=== PATIENT | male | born 1950 | race Caucasian/White ===

== ENCOUNTER 2018-03-05 22:26 | Emergency (ER) | payer OTHER ==
--- OUTSIDE RECORDS SUMMARY | 2018-03-05 22:28 | XMS REPORT ---
:1950 Author Organization eClinicalWorks Care Team Providers Name Role Phone Sukhwinder Wagner Provider Role Unavailable Allergies No Known Allergies Problems Problem Type Condition Code Onset Dates Condition Status Problem Chronic pain syndrome G89.4 Active Problem Former heavy tobacco smoker Z87.891 Active Problem Debility R53.81 Active Problem Hypothyroidism, unspecified type E03.9 Active Problem 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 Active Problem Iron deficiency anemia, unspecified D50.9 Active iron deficiency anemia type Problem Controlled type 2 diabetes mellitus E11.9 Active without complication, without long-term current use of insulin Problem 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 Problem At risk for falling Z91.81 Active Problem Rheumatoid arthritis involving M06.9 Active multiple sites, unspecified rheumatoid factor presence Problem Osteoarthritis of multiple joints, M15.9 Active unspecified osteoarthritis type Problem Chronic obstructive pulmonary J44.9 Active disease, unspecified COPD type Assessment Coronary artery disease involving I25.10 Active [place] coronary artery of [place] heart without angina pectoris Problem Hypertensive heart disease without I11.9 Active heart failure Problem History of fall Z91.81 Active Problem Coronary artery disease involving I25.10 Active [place] coronary artery of [place] heart without angina pectoris Problem Mixed hyperlipidemia E78.2 Active Problem GERD without esophagitis K21.9 Active Problem 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
--- OUTSIDE RECORDS SUMMARY | 2018-03-05 22:28 | XMS REPORT ---
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
--- OUTSIDE RECORDS SUMMARY | 2018-03-05 22:28 | XMS REPORT ---
:1950 Author Organization eClinicalWorks Care Team Providers Name Role Phone Bernard Sukhwinder Provider Role Unavailable Allergies, Adverse Reactions, Alerts Substance Reaction Event Type N.K.D.A. 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 [...] J44.9 Active disease, unspecified COPD type Assessment Abscess of right thigh L02.415 Active Problem Hypertensive heart disease without I11.9 Active heart failure Problem History of fall Z91.81 Active Problem Coronary artery disease involving I25.10 Active [place] coronary artery of [place] heart without angina pectoris Problem Mixed hyperlipidemia E78.2 Active Problem GERD without esophagitis K21.9 Active Problem 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 37671705366 800-160 MG September 13September Active 1 tablet Orally Twice a 2017 Metformin HCl ND 34646645666 500 MG Orally Active 1 tablet Twice a day with meals Synthroid [facility] 37713752441 25 MCG Orally August 02, Active 1 tablet Once a day 2017 on an empty stomach in the morning Morphine Sulfate [facility] 22284319339 15 MG Orally Active 1 tablet every 4 hrs as needed Sulfasalazine [facility] 78849294860 500 MG Orally Active 1 tablet every [address] [facility] 19734608700 1 MG Orally Active 1 tablet Once a day Metoprolol [facility] 95935645472 50 MG Orally Active 1 tablet Tartrate Twice a day with food Magnesium [facility] 57804013660 250 MG Orally Active 1 tablet Once a day with a meal Famotidine [facility] 58054761411 20 MG Orally Active 1 tablet Twice a day Clopidogrel [facility] 52394798378 75 MG Orally Active 1 tablet Bisulfate Once a day Aspir-[address] [facility] 04611055062 81 MG Orally Active 1 tablet Once a day Ferrous Sulfate [facility] 35931265325 325 (65 Fe) MG Active 1 tablet Orally Once a day Results No Known Results Summary Purpose eClinicalWorks Submission
--- OUTSIDE RECORDS SUMMARY | 2018-03-05 22:28 | XMS REPORT ---
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
--- OUTSIDE RECORDS SUMMARY | 2018-03-05 22:28 | XMS REPORT ---
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81 Active Problem Hypothyroidism, unspecified type E03.9 Active Problem 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 Active Assessment Hypothyroidism, unspecified type E03.9 Active Assessment Coronary artery disease involving I25.10 Active [place] coronary artery of [place] heart without angina pectoris Problem Iron deficiency anemia, unspecified D50.9 Active iron deficiency anemia type Assessment Mixed hyperlipidemia E78.2 Active Problem Controlled type 2 diabetes mellitus E11.9 Active without complication, without long-term current use of insulin Problem 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 Problem At risk for falling Z91.81 Active Problem Rheumatoid arthritis involving M06.9 Active multiple sites, unspecified rheumatoid factor presence Assessment Iron deficiency anemia, unspecified D50.9 Active iron deficiency anemia type Problem Osteoarthritis of multiple joints, M15.9 Active unspecified osteoarthritis type Assessment 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 Problem Chronic obstructive pulmonary J44.9 Active disease, unspecified COPD type Assessment Pain in right foot M79.671 Active Assessment Chronic pain syndrome G89.4 Active Assessment Pain of left foot M79.672 Active Problem Hypertensive heart disease without I11.9 Active heart failure Problem History of fall Z91.81 Active Problem Coronary artery disease involving I25.10 Active [place] coronary artery of [place] heart without angina pectoris Problem GERD without esophagitis K21.9 Active Medications Medication Code Code Instructions Start End Status Dosage System Date Date Synthroid [facility] 08252679910 25 MCG Orally August 02, Active 1 tablet Once a day 2017 on an empty stomach in the morning Oxycodone-Acetami [facility] 36267874790 10-325 MG Active 1 tablet nophen Orally every 6 as needed hrs Magnesium [facility] 48547354694 250 MG Orally Active 1 tablet Once a day with a meal Metformin HCl [facility] 74931614199 500 MG Orally Active 1 tablet Twice a day with meals Ferrous Sulfate [facility] 20259627585 325 (65 Fe) MG Active 1 tablet Orally Once a day Morphine Sulfate [facility] 72088114697 15 MG Orally Active 1 tablet every 4 hrs as needed Pravastatin [facility] 62029226658 40 MG Orally Active 1 tablet Sodium Once a day Famotidine [facility] 79968787849 20 MG Orally Active 1 tablet Once a day at bedtime Clopidogrel [facility] 98268706033 75 MG Orally Active 1 tablet Bisulfate Once a day -81 [facility] 44025055721 81 MG Orally Active 1 tablet Once a day Sulfasalazine [facility] 49334523598 500 MG Orally Active 1 tablet every 12 hrs Folic Acid [facility] 39949557735 1 MG Orally Active 1 tablet Once a day Allopurinol [facility] 73587398028 300 MG Orally Active 1 tablet Once a day Gabapentin [facility] 05561863324 600 MG Orally Active 1 tablet Once a day Levothyroxine [facility] 00129037672 25 MCG Orally Active 1 tablet Sodium Once a day on an empty stomach in the morning Bactrim DS [facility] 98388755674 800-160 MG September 13September Active 1 tablet Orally Twice a 2017 Metoprolol [facility] 70891826086 50 MG Orally Active 1 tablet Tartrate Twice a day with food Results No Known Results Summary Purpose eClinicalWorks Submission
--- OUTSIDE RECORDS SUMMARY | 2018-03-05 22:28 | XMS REPORT ---
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9 Active Problem 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 Active Assessment Coronary artery disease involving I25.10 Active [place] coronary artery of [place] heart without angina pectoris Assessment Mixed hyperlipidemia E78.2 Active Problem Iron deficiency anemia, unspecified D50.9 Active iron deficiency anemia type Assessment Rheumatoid arthritis involving M06.9 Active multiple sites, unspecified rheumatoid factor presence Problem Controlled type 2 diabetes mellitus E11.9 Active without complication, without long-term current use of insulin Problem 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 Problem At risk for falling Z91.81 Active Problem Rheumatoid arthritis involving M06.9 Active multiple sites, unspecified rheumatoid factor presence Assessment Pain of left foot M79.672 Active Problem Osteoarthritis of multiple joints, M15.9 Active unspecified osteoarthritis type Assessment Iron deficiency anemia, unspecified D50.9 Active iron deficiency anemia type Problem Chronic obstructive pulmonary J44.9 Active disease, unspecified COPD type Assessment Hypothyroidism, unspecified type E03.9 Active Assessment Pain in right foot M79.671 Active Assessment Chronic pain syndrome G89.4 Active Problem Hypertensive heart disease without I11.9 Active heart failure Problem History of fall Z91.81 Active Problem Coronary artery disease involving I25.10 Active [place] coronary artery of [place] heart without angina pectoris Problem GERD without esophagitis K21.9 Active Medications Medication Code Code Instructions Start End Status Dosage System Date Date [facility] 37842622990 81 MG Orally Active 1 tablet Once a day Famotidine [facility] 74008944825 20 MG Orally Active 1 tablet Once a day at bedtime Sulfasalazine [facility] 45619558465 500 MG Orally Active 1 tablet every 12 hrs Pravastatin [facility] 60749559002 40 MG Orally Active 1 tablet Sodium Once a day Folic Acid [facility] 16695901366 1 MG Orally Active 1 tablet Once a day Gabapentin [facility] 31867675642 600 MG Orally Active 1 tablet Once a day Metoprolol [facility] 43275907809 50 MG Orally Active 1 tablet Tartrate Twice a day with food Allopurinol [facility] 50196152343 300 MG Orally Active 1 tablet Once a day Levothyroxine [facility] 60278687708 25 MCG Orally Inactive 1 tablet Sodium Once a day on an empty stomach in the morning Levothyroxine [facility] 55562020405 50 MCG Orally July 16, Active 1 tablet Sodium Once a day 2018 on an empty stomach in the morning Metformin HCl [facility] 37939701485 500 MG Orally Active 1 tablet Twice a day with meals Magnesium [facility] 79769692808 250 MG Orally Active 1 tablet Once a day with a meal Oxycodone-Acetam [facility] 65324060455 10-325 MG Active 1 tablet inophen Orally every 6 as needed hrs Clopidogrel [facility] 19399727285 75 MG Orally Active 1 tablet Bisulfate Once a day Ferrous Sulfate [facility] 62647601182 325 (65 Fe) MG Active 1 tablet Orally Once a day Morphine Sulfate [facility] 45113832192 15 MG Orally Active 1 tablet every 4 hrs as needed Results No Known Results Summary Purpose eClinicalWorks Submission
--- OUTSIDE RECORDS SUMMARY | 2018-03-05 22:29 | XMS REPORT ---
[...] Assessment Coronary artery disease involving I25.10 Active [place] coronary artery of [place] heart without angina pectoris Problem Iron deficiency [...] Problem Coronary artery disease involving I25.10 Active [place] coronary artery of [place] heart without angina pectoris Problem GERD without esophagitis K21.9 Active Medications Medication Code Code Instructions Start End Status Dosage System Date Date Ferrous Sulfate [facility] 40094267083 325 (65 Fe) MG Active 1 tablet Orally Once a day Pravastatin [facility] 90645876036 40 MG Orally Active 1 tablet Sodium Once a day Morphine Sulfate [facility] 99033513614 15 MG Orally Active 1 tablet every 4 hrs as needed Synthroid [facility] 08813615317 25 MCG Orally August 02, Active 1 tablet Once a day 2017 on an empty stomach in the morning Metoprolol [facility] 43733841755 50 MG Orally Active 1 tablet Tartrate Twice a day with food -81 [facility] 55566833745 81 MG Orally Active 1 tablet Once a day Metformin HCl [facility] 55080579452 500 MG Orally Active 1 tablet Twice a day with meals Oxycodone-Acetami [facility] 20457139581 10-325 MG Active 1 tablet nophen Orally every 6 as needed hrs Folic Acid [facility] 34835627615 1 MG Orally Active 1 tablet Once a day Levothyroxine [facility] 65598362258 25 MCG Orally Active 1 tablet Sodium Once a day on an empty stomach in the morning Clopidogrel [facility] 65314119470 75 MG Orally Active 1 tablet Bisulfate Once a day Magnesium [facility] 17151932694 250 MG Orally Active 1 tablet Once a day with a meal Allopurinol [facility] 22353489329 300 MG Orally Active 1 tablet Once a day Famotidine [facility] 32189715975 20 MG Orally Active 1 tablet Once a day at bedtime Gabapentin [facility] 28925422394 600 MG Orally Active 1 tablet Once a day Sulfasalazine [facility] 48982482040 500 MG Orally Active 1 tablet every 12 hrs Results No Known Results Summary Purpose eClinicalWorks Submission
--- OUTSIDE RECORDS SUMMARY | 2018-03-05 22:29 | XMS REPORT ---
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
--- OUTSIDE RECORDS SUMMARY | 2018-03-05 22:29 | XMS REPORT ---
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
[2018-03-05] MEDS ORDERED: WATER FOR INJ,STERILE 10 ML ONE (23:18)
[2018-03-05] MEDS ORDERED: CEFTRIAXONE 1000 MG/VIAL ONE (23:18)
--- NOTE | 2018-03-05 23:30 | ER ---
Nurse's Notes [facility] Name: Cristian Echevarria Age: 67 yrs Sex: Male : 1950 Arrival Date: 03/05/2018 Time: 22:27 Bed 13 Private MD: Sukhwinder Wagner Diagnosis: Acute actinic otitis externa, left ear Presentation: 03/05 22:34 Presenting complaint: Patient states: left ear pain X1 week. Transition of care: ak1 patient was not received from another setting of care. Onset of symptoms is unknown. Risk Assessment: Do you want to hurt yourself or someone else? Patient reports no desire to harm self or others. Initial Sepsis Screen: Does the patient meet any 2 criteria? No. Patient's initial sepsis screen is negative. Does the patient have a suspected source of infection? No. Patient's initial sepsis screen is negative. Care prior to arrival: None. 22:34 Method Of Arrival: Ambulatory ak1 22:34 Acuity: JOEL 4 ak1 Triage Assessment: 22:35 General: Appears in no apparent distress. Behavior is calm, cooperative. Pain: ak1 Complains of pain in left ear. Historical: - Allergies: 22:35 No Known Allergies; ak1 - Immunization history:: Adult Immunizations unknown. - Social history:: Smoking status: Patient uses tobacco products, vape. - Ebola Screening: : No symptoms or risks identified at this time. Screenin:36 Abuse screen: Denies threats or abuse. Denies injuries from another. Nutritional ak1 screening: No deficits noted. Tuberculosis screening: No symptoms or risk factors identified. Fall Risk Ambulatory Aid- Crutches/Cane/Walker (15 pts). Assessment: 23:00 General: Appears in no apparent distress. uncomfortable, Behavior is calm, cooperative, jb4 appropriate for age. Pain: Complains of pain in left ear Pain does not radiate. Pain currently is 7 out of 10 on a pain scale. at worst was 10 out of 10 on a pain scale. Quality of pain is described as burning, stabbing. Neuro: Level of Consciousness is awake, alert, obeys commands, Oriented to person, place, time, situation. Cardiovascular: Patient's skin is warm and dry. Respiratory: Airway is patent Respiratory effort is even, unlabored, Respiratory pattern is regular, symmetrical. GI: No signs and/or symptoms were reported involving the gastrointestinal system. : No signs and/or symptoms were reported regarding the genitourinary system. EENT: Redness noted to the left ear.. Derm: Skin is intact, Skin is pink, warm \T\ dry. Musculoskeletal: Circulation, motion, and sensation intact. 23:24 Reassessment: Patient appears in no apparent distress at this time. Patient and/or jb4 family updated on plan of care and expected duration. Pain level reassessed. Patient is alert, oriented x 3, equal unlabored respirations, skin warm/dry/pink. Vital Signs: 22:35 BP 146 / 63; Pulse 88; Resp 18; Temp 98.5(O); Pulse Ox 97% on R/A; Weight 92.53 kg (R); ak1 Height 6 ft. 0 in. (182.88 cm) (R); Pain 8/10; 23:24 BP 129 / 76; Pulse 84; Resp 16; Pulse Ox 97% on R/A; jb4 22:35 Body Mass Index 27.67 (92.53 kg, 182.88 cm) ak1 ED Course: 22:27 Patient arrived in ED. am2 22:27 Sukhwinder Wagner DO is Private Physician. am2 22:32 [facility]. jmm 22:32 Chico Rene MD is Attending Physician. [facility] 22:34 Triage completed. ak1 22:35 Arm band placed on Patient placed in an exam room, on a stretcher, on pulse oximetry. ak1 22:36 Patient has correct armband on for positive identification. Bed in low position. Call ak1 light in reach. Side rails up X 1. Adult w/ patient. Pulse ox on. NIBP on. 23:00 Colby Strauss, ANA is Primary Nurse. jb4 23:29 Eufemia Franco MD is Referral Physician. [facility] 23:42 No provider procedures requiring assistance completed. Patient did not have IV access jb4 during this emergency room visit. Administered Medications: 23:20 Drug: Rocephin (cefTRIAXone) 1 grams Route: IM; Site: left gluteus; jb4 23:40 Follow up: Response: No adverse reaction jb4 Outcome: 23:30 Discharge ordered by . [facility] 23:42 Discharged to home ambulatory, with significant other. jb4 23:42 Condition: stable 23:42 Discharge instructions given to patient, significant other, Instructed on discharge instructions, follow up and referral plans. medication usage, Demonstrated understanding of instructions, follow-up care, medications, Prescriptions given X 2. 23:43 Patient left the ED. jb4 Signatures: Jurgen Gonzales PA PA jmm Krenek, Amber RN RN ak1 Colby Strauss RN RN jb4 Faye García am2
--- NOTE | 2018-03-05 23:30 | EDPHYS ---
Physician Documentation [facility] Name: Cristian Echevarria Age: 67 yrs Sex: Male : 1950 Arrival Date: 03/05/2018 Time: 22:27 Bed 13 Private MD: Sukhwinder Wagner ED Physician Chico Rene HPI: 03/05 23:24 This 67 yrs old Male presents to ER via Ambulatory with complaints of Ear jmm Pain. 23:24 The patient presents with pain, swelling. Onset: The symptoms/episode began/occurred jmm gradually, 1 week(s) ago. Associated signs and symptoms: Pertinent positives: cough, Pertinent negatives: fever. This is a 67 year old male with a history of cancer of the throat that presents to the ED with left ear pain and swelling beginning 1 week prior. Patient is currently taking augmentin for an upper respiratory infection. Denies fever. . Historical: - Allergies: 22:35 No Known Allergies; ak1 - Immunization history:: Adult Immunizations unknown. - Social history:: Smoking status: Patient uses tobacco products, vape. - Ebola Screening: : No symptoms or risks identified at this time. ROS: 23:24 Constitutional: Negative for fever, chills, and weight loss. jmm 23:24 Cardiovascular: Negative for chest pain, palpitations, and edema, Respiratory: Negative for shortness of breath, cough, wheezing, and pleuritic chest pain. 23:24 ENT: Positive for ear pain. 23:24 Respiratory: Positive for cough. 23:24 All other systems are negative. Exam: 23:24 Constitutional: This is a well developed, well nourished patient who is awake, alert, jmm and in no acute distress. Head/Face: atraumatic. 23:24 Chest/axilla: Normal chest wall appearance and motion. Cardiovascular: Regular rate and rhythm. No edema appreciated Respiratory: Normal respirations, no respiratory distress appreciated Abdomen/GI: Non distended, soft Back: Normal ROM 23:24 ENT: Ear canal(s): erythema, swelling, that is moderate, of the left canal, TM's: erythema, that is mild, bilaterally. 23:24 Neck: ROM/movement: is normal. 23:24 Skin: erythema noted to the left ear canal. 23:24 Neuro: Orientation: is normal, Mentation: is normal, Memory: is normal. 23:24 Psych: Behavior/mood is pleasant, cooperative. Vital Signs: 22:35 BP 146 / 63; Pulse 88; Resp 18; Temp 98.5(O); Pulse Ox 97% on R/A; Weight 92.53 kg (R); ak1 Height 6 ft. 0 in. (182.88 cm) (R); Pain 8/10; 23:24 BP 129 / 76; Pulse 84; Resp 16; Pulse Ox 97% on R/A; jb4 22:35 Body Mass Index 27.67 (92.53 kg, 182.88 cm) ak1 MDM: 22:33 Patient medically screened. yulissa 23:27 Data reviewed: vital signs, nurses notes. Counseling: I had a detailed discussion with bri the patient and/or guardian regarding: the historical points, exam findings, and any diagnostic results supporting the discharge/admit diagnosis, the need for outpatient follow up, to return to the emergency department if symptoms worsen or persist or if there are any questions or concerns that arise at home. ED course: Symptoms appear consistent with OE. Patient states she is advised to follow up with Dr. Franco tomorrow for reevaluation due to history of cancer. Patient is alert and non toxic in appearance. Patient given strict return precautions. Patient understood and agrees with the plan of care. . Administered Medications: 23:20 Drug: Rocephin (cefTRIAXone) 1 grams Route: IM; Site: left gluteus; jb4 23:40 Follow up: Response: No adverse reaction jb4 Disposition: 03/06 01:35 Co-signature as Attending Physician, Chico Rene MD. pk Disposition: 03/05/18 23:30 Discharged to Home. Impression: Acute actinic otitis externa, left ear. - Condition is Stable. - Discharge Instructions: Ear Drops, Adult, Otitis Externa. - Prescriptions for FLOXIN OTIC 0.3% - instill 10 drop by OTIC route 4 times per day for 7 days; 1 bottle. cefdinir 300 mg Oral capsule - take 1 capsule by ORAL route every 12 hours; 20 capsule. - Medication Reconciliation Form, Thank You Letter, Antibiotic Education, Prescription Opioid Use form. - Follow up: Eufemia Franco MD; When: Tomorrow; Reason: Recheck today's complaints, Continuance of care, Re-evaluation by your physician. Signatures: Sonny Inman MD MD cha Lam, Pin, MD MD pkl Mickail, Joel, PA PA jmm Krenek, Amber, RN RN ak1 Colby Strauss, ANA RN jb4 Corrections: (The following items were deleted from the chart) 03/05 23:43 23:30 03/05/2018 23:30 Discharged to Home. Impression: Acute actinic otitis externa, jb4 left ear. Condition is Stable. Forms are Medication Reconciliation Form, Thank You Letter, Antibiotic Education, Prescription Opioid Use. Follow up: Eufemia Franco; When: Tomorrow; Reason: Recheck today's complaints, Continuance of care, Re-evaluation by your physician. bri
== END 2018-03-05 23:43 | disposition home or self-care (01) ==
LOC: ER 22:26
DX: H60.92 Unspecified otitis externa, left ear (principal); Z85.819 Personal history of malignant neoplasm of unspecified site of lip, oral cavity, and pharynx; F17.290 Nicotine dependence, other tobacco product, uncomplicated
CPT/HCPCS: 96372; 99283

== ENCOUNTER 2019-07-30 17:25 | Emergency (ER) | payer OTHER ==
[2019-07-30] MEDS ORDERED: FENTANYL CITR 100 MCG/2 ML ONE (18:06)
[2019-07-30] MEDS ORDERED: DIAZEPAM 10 MG/2 ML INJ SYRINGE ONE (18:07)
--- OUTSIDE RECORDS SUMMARY | 2019-07-30 18:18 | XMS REPORT ---
:1950 Author Organization [facility] t Address [address] [place] [address] Care Team Providers Name Role Phone Unavailable Unavailable Unavailable Problems Condition Condition Condition Status Onset Resolution Last Treating Co mments Source Name Details Category Date Date Treatment Clinician Date Former Former Diagnosis Active [facility] heavy heavy [facility] tobacco tobacco [facility] smoker smoker l [facility] Peripheral Peripheral Diagnosis Active [facility] neuropathi neuropathi Tracy kes - c pain c pain Memoria l [facility] Debility Debility Problem [facility] Chronic Chronic Problem Active [facility] obstructiv obstructiv Tracy kes - e e Memoria pulmonary pulmonary l disease, disease, Outpat i unspecifie unspecifie en t d COPD d COPD Clinics type type History of History of Diagnosis Active [facility] fall fall [facility] GERD GERD Problem Active [facility] without without [facility] - esophagiti esophagiti Me moria s s l [facility] History of History of Diagnosis Active [facility] laryngeal laryngeal Luke s - cancer cancer Memoria l [facility] Stented Stented Problem Active [facility] coronary coronary [facility] - artery artery Memoria l [facility] Clinics Osteoarthr Osteoarthr Diagnosis Active [facility] itis of itis of [facility] - multiple multiple Memori a joints, joints, l unspecifie unspecifie Ou tpati d d ent osteoarthr osteoarthr Cl inics itis type itis type Mixed Mixed Problem Active [facility] hyperlipid hyperlipid Tracy kes - emia emia Memoria l [facility] ent Clinics Controlled Controlled Problem Active [facility] type 2 type 2 [facility] - diabetes diabetes Memori a mellitus mellitus l without without Outpati complicati complicati en t on, on, Clinics without without long-term long-term current current use of use of insulin insulin Hypertensi Hypertensi Diagnosis Active [facility] ve heart ve heart [facility] - disease disease Memoria without without l heart heart Outpati failure failure ent Clinics Chronic Chronic Problem Active [facility] pain pain [facility] - syndrome syndrome Memori a l Outpati ent Clinics Hypothyroi Hypothyroi Problem Active [facility] dism, dism, [facility] - unspecifie unspecifie Me moria d type d type l Outpati ent Clinics Coronary Coronary Problem [facility] artery [facility] - disease disease [facility] involving involving [place] coronary coronary ent artery of artery of Clin ics [place] heart heart without without angina angina pectoris pectoris Iron Iron Diagnosis Active [facility] deficiency deficiency Tracy kes - anemia, anemia, Memoria unspecifie unspecifie l d iron d iron Outpati deficiency deficiency en t anemia anemia Clinics type type Rheumatoid Rheumatoid Problem Active [facility] arthritis arthritis Luke s - involving involving Faustino macarena multiple multiple l sites, sites, Outpati unspecifie unspecifie en t d d Clinics rheumatoid rheumatoid factor factor presence presence COPD COPD Problem Active [facility] exacerbati exacerbati Tracy kes - on on Memoria l Outpati ent Clinics Cough Cough Problem Active [facility] Clinics Abdominal Abdominal Problem Active [facility] aortic aortic [facility] - aneurysm aneurysm Memori a (AAA) (AAA) l without without Outpati rupture rupture ent Clinics Proteinuri Proteinuri Problem Active [facility] a, a, [facility] - unspecifie unspecifie Me moria d type d type l Outpati ent Clinics Chronic Chronic Problem Active [facility] kidney kidney [facility] - disease, disease, Memori a stage 3 stage 3 l (moderate) (moderate) Ou tpati ent Clinics Type 2 Type [address] [facility] diabetes diabetes [facility] - mellitus mellitus Memori a with with l diabetic diabetic Outpat i chronic chronic ent kidney kidney Clinics disease disease Allergies, Adverse Reactions, Alerts This patient has no known allergies or adverse reactions. Medications Ordered Filled Start Stop Current Ordering Indication Dosage Frequency Signature Comments Components Source Medication Medication Date Date Medication? Clinician (SIG) Name Name Metformin Metformin Yes Sukhwinder [address] [facility] HCl HCl Wagner with meals [facility]oria [facility] Oxycodone-A Oxycodone-A Yes Sukhwinder [address] [facility] cetaminophe cetaminophe Wagner as needed [facility] - n n Memoria l [facility] Pravastatin Pravastatin Yes Sukhwinder [address] [facility] Sodium Sodium Wagner [facility] l [facility] Clopidogrel Clopidogrel Yes Sukhwinder TAKE [address] [facility] Bisulfate Bisulfate Wagner TABLET BY [facility] - MOUTH ONCE Memoria DAILY l [facility] Magnesium Magnesium Yes Sukhwinder [address] [facility] Wagner with a [facility] - meal Memoria l [facility] Morphine Morphine Yes Sukhwinder [address] Sulfate Sulfate Wagner as needed Arm[place] es - Memoria l [facility] Famotidine Famotidine Yes Sukhwinder [address] [facility] Wagner at bedtime [facility] - Memoria l [facility] Levothyroxi Levothyroxi Yes Sukhwinder [address] [facility] ne Sodium ne Sodium Wagner on an [place] es - empty Memoria stomach in l the Outpati morning ent Clinics Allopurinol Allopurinol Yes Sukhwinder [address] [facility] Wagner [facility] - Memoria l [facility] Clinics Ferrous Ferrous Yes Sukhwinder [address] [facility] Sulfate Sulfate Wagner [facility]oria l [facility] Metoprolol Metoprolol Yes Sukhwinder [address] [facility] Tartrate Tartrate Wagner with food L ukes - Memoria l [facility] Breo Breo Yes Sukhwinder [address] [facility] Ellipta Ellipta Wagner [facility] Memoria l [facility] Sulfasalazi Sulfasalazi Yes Sukhwinder [address] [facility] ne ne Wagner [facility]oria l [facility] Gabapentin Gabapentin Yes Sukhwinder [address] [facility] Wagner [facility] l [facility] Aspir-81 Aspir-81 Yes Sukhwinder [address] Wagner [facility] l [facility] Folic Acid Folic Acid Yes Sukhwinder [address] [facility] Wagner [facility] l [facility] Levothyroxi Levothyroxi Yes Sukhwinder [address] [facility] ne Sodium ne Sodium Wagner on an Armond es - empty Memoria stomach in l the [facility] morning ent Clinics Iron Iron Yes Sukhwinder TAKE [address] [facility] Wagner TABLET BY [facility] - MOUTH ONCE Memoria DAILY l [facility] Metformin Metformin Yes Sukhwinder TAKE [address] HCl HCl Wagner TABLET BY [facility] - MOUTH Memoria TWICE l DAILY WITH Outpati MEALS FOR ent 90 DAYS Clinics Procedures This patient has no known procedures. Encounters Start End Encounter Admission Attending Care Care Encounter Source Date/Time Date/Time Type Type Clinicians Facility Department ID 2019-07-29 2019-07-29 [facility] [id number] [facility] 08:45:00 08:45:[place] [employer] Luke s - Drive [facility] Medicine Outpati ent Clinics 2019-04-29 2019-04-29 [facility] [id number] [address] 11:45:00 11:45:00 [place] [employer] s - Drive [facility] Medicine Outpati ent Clinics 2019-01-09 2019-01-09 [facility] [id number] 09:30:00 09:30:00 [place] [employer] s - Drive [facility] l Medicine Outpati ent Clinics 2018-12-30 2018-12-30 [facility] [id number] 10[facility]11:00 10:11:00 [place] [employer] - Drive [facility] Medicine Outpati ent Clinics 2018-12-16 2018-12-16 [facility] [id number] 13:45:00 13:45:00 [place] [employer] s - Drive [facility] Medicine Outpati ent Clinics 2018-10-14 2018-10-14 [facility] [id number] 09:40:00 09:40:00 [place] [employer] - Drive [facility] Medicine Outpati ent Clinics 2018-10-08 2018-10-08 [facility] [id number] 10:30:00 10:30:00 [place] [employer] s - Drive [facility] Medicine Outpati ent Clinics 2018-07-08 2018-07-08 [facility] [id number] [address] 09:30:00 09:30:00 [place] [employer] s - Drive [facility] Medicine Outpati ent Clinics 2018-04-08 2018-04-08 [facility] [id number] 10:45:00 10:45:00 [place] [employer] s - Drive [facility] Medicine Outpati ent Clinics 2018-03-07 2018-03-07 [facility] [id number] [address] 09:12:00 09:12:00 [place] [employer] s - Drive [facility] l Medicine Outpati ent Clinics 2018-03-07 2018-03-07 [facility] [id number] [facility] 09:00:00 09:00:00 [place] [employer] s - Drive [facility] Medicine l Medicine Outpati ent Clinics 2018-02-27 2018-02-27 [facility] [id number] [address] 17[facility]15:00 17:15:00 t Urgent [facility] L [facility] l Outpati ent Clinics 2018-02-27 2018-02-27 [facility] [id number] 16:40:00 16:40:00 [place] [employer] - [employer] [facility] Medicine l Medicine Outpati ent Clinics 2018-02-25 2018-02-25 [facility] [id number] [address] 08:47:00 08:47:00 [place] [employer] - [employer] [facility] Medicine Outpati ent Clinics 2017-12-14 2017-12-14 [facility] [id number] [facility] 08:27:00 08:27:00 [place] [employer] - [employer] [facility] Medicine l Medicine Outpati ent Clinics 2017-12-06 2017-12-06 [facility] [id number] 07:51:00 07:51:00 [place] [employer] - [employer] [facility] Medicine l Medicine Outpati ent Clinics 2017-11-01 2017-11-01 [facility] [id number] [facility] 10:30:00 10:30:00 [place] [employer] - [employer] [facility] Medicine l Medicine Outpati ent Clinics 2017-10-02 2017-10-02 [facility] [id number] 15:00:00 15:00:00 [place] [employer] - Drive [facility] Medicine l Medicine Outpati ent Clinics 2017-09-17 2017-09-17 [facility] [id number] 10:45:00 10:45:00 [place] [employer] s - Drive [facility] Medicine Outpati ent Clinics 2017-09-13 2017-09-13 [facility] [id number] 13:15:00 13:15:00 t [email or web address] [facility] Medicine Outpati ent Clinics 2017-08-17 2017-08-17 [facility] [id number] 09:30:00 09:30:00 t [facility] Outpati ent Clinics 2017-08-01 2017-08-01 Outpatient Lindsay Montoyat [id number] 16:26:00 16:26:00 t [employer] [facility] Outpati ent Clinics 2017-07-16 2017-07-16 [place] [facility] [place] [id number] [facility] 10:00:00 10:00:00 t [facility] Outpati ent Clinics Results This patient has no known results.
--- OUTSIDE RECORDS SUMMARY | 2019-07-30 18:18 | XMS REPORT ---
:1950 Author Organization eClinicalWorks Care Team Providers Name Role Phone Bernard Sukhwinder Provider Role Unavailable Allergies, Adverse Reactions, Alerts Substance Reaction Event Type N.K.D.A. Info Not Available Non Drug Allergy Problems Problem Type Condition Code Onset Dates Condition Statu s Assessment Chronic pain syndrome G89.4 Active Assessment Rheumatoid arthritis involving M06.9 Active multiple sites, unspecified rheumatoid factor presence Assessment Abdominal aortic aneurysm (AAA) I71.4 Active without rupture Assessment Mixed hyperlipidemia E78.2 Active Assessment Proteinuria, unspecified type R80.9 Active Assessment Chronic kidney disease, stage 3 N18.3 Active (moderate) Assessment Type 2 diabetes mellitus with E11.22 Active diabetic chronic kidney disease Assessment Chronic obstructive pulmonary J44.9 Active disease, unspecified COPD type Assessment Hypothyroidism, unspecified type E03.9 Active Problem Rheumatoid arthritis involving M06.9 Active multiple sites, unspecified rheumatoid factor presence Problem At risk for falling Z91.81 Active Problem Former heavy tobacco smoker Z87.891 Active Problem Hypertensive heart disease without I11.9 Active heart failure Problem Hypothyroidism, unspecified type E03.9 Active Problem 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 Active Problem Type 2 diabetes mellitus with E11.22 Active diabetic chronic kidney disease Problem Proteinuria, unspecified type R80.9 Active Problem Chronic obstructive pulmonary J44.9 Active disease, unspecified COPD type Problem Osteoarthritis of multiple joints, M15.9 Active unspecified osteoarthritis type Assessment Debility R53.81 Active Problem Chronic kidney disease, stage 3 N18.3 Active (moderate) Problem 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 Assessment Former heavy tobacco smoker Z87.891 Active Problem Abdominal aortic aneurysm (AAA) I71.4 Active without rupture Assessment GERD without esophagitis K21.9 Act [place] Problem Iron deficiency anemia, unspecified D50.9 Active iron deficiency anemia type Assessment 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 Active Problem Cough R05 Active Assessment Stented coronary artery Z95.5 Acti ve Problem COPD exacerbation J44.1 Active Assessment Coronary artery disease involving I25.10 Active [place] coronary artery of [place] heart without angina pectoris Problem History of fall Z91.81 Active Assessment Hypertensive heart disease without I11.9 Active heart failure Problem Mixed hyperlipidemia E78.2 Active Assessment Iron deficiency anemia, unspecified D50.9 Active iron deficiency anemia type Problem Coronary artery disease involving I25.10 Active [place] coronary artery of [place] heart without angina pectoris Assessment Osteoarthritis of multiple joints, M15.9 Active unspecified osteoarthritis type Problem GERD without esophagitis K21.9 Act brunilda Assessment History of fall Z91.81 Active Problem Debility R53.81 Active Assessment 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 Problem Controlled type 2 diabetes mellitus E11.9 Active without complication, without long-term current use of insulin Problem Stented coronary artery Z95.5 Acti ve Problem Chronic pain syndrome G89.4 Active Medications Medication Code Code Instructions Start End Status Dosage System Date Date Morphine Sulfate [facility] 42482910784 15 MG Orally Active 1 tablet every 4 hrs as needed Clopidogrel [facility] 30106855369 75 MG Orally Active 1 t ablet Bisulfate Once a day Metoprolol [facility] 42336268567 50 MG Orally Active 1 ta blet Tartrate Twice a day with food Metformin HCl [facility] 94219564202 500 MG Orally Active 1 tablet Twice a day with meals Ferrous Sulfate [facility] 14994912501 325 (65 Fe) MG Activ e 1 tablet Orally Once a day Folic Acid [facility] 38569900719 1 MG Orally Active 1 tab let Once a day Levothyroxine [facility] 21544279276 88 MCG Orally Active 1 tablet Sodium Once a day on an empty stomach in the morning Oxycodone-Acetami [facility] 56337394346 10-325 MG Active 1 tablet nophen Orally every 6 as needed hrs Sulfasalazine [facility] 01830827586 500 MG Orally Active 1 tablet every 12 hrs Pravastatin [facility] 05800758602 40 MG Orally Active 1 t ablet Sodium Once a day Clopidogrel [facility] 30897138554 75 MG Active TAKE 1 Bisulfate TABLET BY MOUTH ONCE DAILY Iron [facility] 13372004523 325 (65 Fe) MG Active TAKE 1 TABLET BY MOUTH ONCE DAILY Levothyroxine [facility] 87668414619 88 MCG Orally Active 1 tablet Sodium Once a day on an empty stomach in the morning Breo Ellipta [facility] 22751071693 100-25 MCG/INH Active 1 puff Inhalation Once a day Gabapentin [facility] 57255027217 600 MG Orally Active 1 t ablet Once a day Aspir-81 [facility] 73553877702 81 MG Orally Active 1 tabl et Once a day Pravastatin [facility] 87662200484 40 MG Orally Active 1 t ablet Sodium Once a day Metformin HCl [facility] 83364367866 500 MG Active TAKE 1 TABLET BY MOUTH TWICE DAILY WITH MEALS FOR 90 DAYS Famotidine [facility] 34965646384 20 MG Orally Active 1 ta blet Once a day at bedtime Allopurinol [facility] 98395176541 300 MG Orally Active 1 tablet Once a day Magnesium [facility] 65874490922 250 MG Orally Active 1 ta blet Once a day with a meal Results No Known Results Summary Purpose eClinicalWorks Submission
[2019-07-30 18:26] LABS: Absolute Lymphocytes (CBC) 1.3 K/uL (0.7-4.9); Basophils % 0.9 % (0-1.3); Hematocrit 37.5 % (39.6-49.0); Lymphocytes % 17.7 % (15.3-44.8); MPV 8.4 fL (7.6-11.3); RBC Red Blood Cell Count 4.06 M/uL (4.33-5.43)
[2019-07-30 18:30] LABS: Potassium 4.4 mmol/L (3.5-5.1); Protime INR 0.89
--- NOTE | 2019-07-30 19:23 | RAD REPORT ---
EXAM DESCRIPTION: RAD - Chest Single View - 07/30/2019 6:59 pm CLINICAL HISTORY: fall, chest pain TECHNIQUE: AP portable chest image was obtained 07/30/2019 6:59 pm . FINDINGS: Lungs are clear. Heart size is upper normal. No vascular engorgement. CABG surgical change s are noted. No measurable pleural effusion and no pneumothorax. No gross evidence for rib fracture o r other acute bone process. No acute aortic findings suspected. IMPRESSION: No acute cardiopulmonary process.
--- NOTE | 2019-07-30 19:23 | RAD REPORT ---
EXAM DESCRIPTION: RAD - Hip Left 2 View - 07/30/2019 6:59 pm CLINICAL HISTORY: Pain;Smash injury, trip and fall COMPARISON: Hip Left Wo Con dated 07/30/2019 FINDINGS: AP and cross-table lateral views of the left hip were obtained. There is no fracture or dislocation. No acute or destructive bony process seen. Degenerative changes are present along the superior acetabular rim. Arterial calcifications are present. No joint effusio n suspected. No soft tissue abnormality. IMPRESSION: Mild degenerative change of the left hip. No fracture identified. Detail is somewhat limited by body habitus. If the patient has pain out of proportion to the exam fin dings, follow-up CT imaging could be performed to evaluate for subtle fracture.
--- NOTE | 2019-07-30 19:26 | RAD REPORT ---
EXAM DESCRIPTION: CT - Hip Left Wo Con - 07/30/2019 7:11 pm CLINICAL HISTORY: pain, trip and fall, hip pain, pain out of proportion to exam findings COMPARISON: Hip Left 2 View dated 07/30/2019 TECHNIQUE: Axial 2 millimeter thick images of the left hip joint were obtained. Sagittal and coronal reformatted images were generated and reviewed. The CT scan was performed using dose optimization techniques as appropriate to a performed exam incl uding one or more of the following: Automated exposure control, adjustment of the mA and/or kV accord ing to patient size (this includes techniques or standardized protocols for targeted exams where dose is matched to indication/reason for exam) and use of iterative reconstruction technique. FINDINGS: No fracture of the proximal left femur or imaged portions of the left hip joint. No AVN or focal femoral head abnormality seen. Patient has mild degenerative change along the acetabular rim. No joint effusion identified. No edema or contusion in the subcutaneous fatty tissues. The iliopsoas muscle is prominent compared t o adjacent skeletal musculature. Small intramuscular hematoma is suspected. Hematomas contained withi n the muscle belly. Along the pelvic floor urinary bladder is unremarkable. A small diverticulum is seen anteriorly. Vasc ular calcifications are present. No fluid or air. IMPRESSION: Mild degenerative change of the left hip joint with no fracture. Small hematoma within and edema changes within the left iliopsoas musculature.
[2019-07-30 20:23] VITALS: O2SAT 95
[2019-07-30 20:24] VITALS: BP 137/80
[2019-07-30 20:29] VITALS: TEMP 98.4
--- NOTE | 2019-08-02 13:04 | EKG ---
Test Date: 2019-07-30 Test Time: 18:16:06 Machine Puller: BRODY MEASUREMENT RESULTS: Intervals: Rate: 72 MN: 150 QRSD: 82 QT: 400 QTc: 438 Holt: P: 14 MN: 150 QRS: -22 T: 46 INTERPRETIVE STATEMENTS: Normal sinus rhythm Possible Left atrial enlargement Nonspecific T wave abnormality Abnormal ECG No previous ECG available for comparison Electronically Signed On 08-02-19 13:04:11 CDT by Fernie Conroy
[2019-08-02] MEDS ORDERED: ONDANSETRON 4 MG/2 ML VIAL ONE (21:06)
--- NOTE | 2019-08-04 14:43 | EDPHYS ---
Physician Documentation [facility] Name: Cristian Echevarria Age: 68 yrs Sex: Male : 1950 Arrival Date: 07/30/2019 Time: 17:35 Bed 16 Private MD: ED Physician Frederick Sultana HPI: 07/29 17:53 This 68 yrs old Male presents to ER via EMS with complaints of Fall Injury. snw 17:53 Details of fall: The patient fell from an upright position, while walking, tripped over snw the dog. Onset: The symptoms/episode began/occurred acutely. Associated injuries: The patient sustained left upper thigh, decreased range of motion, painful injury. Severity of symptoms: At their worst the symptoms were moderate. The patient has not experienced similar symptoms in the past. It is unknown whether or not the patient has recently seen a physician. hx of throat cancer 6 yr ago, cancer free now, + rhematoid arthritis, open heart surgery 16 years ago. Historical: - Allergies: 17:52 Dilaudid ("makes me crazy"); ll1 - Immunization history:: Adult Immunizations up to date. - Social history:: Smoking status: Patient denies any tobacco usage or history of. ROS: 17:53 Constitutional: Negative for fever, chills, and weight loss, Eyes: Negative for injury, snw pain, redness, and discharge, ENT: Negative for injury, pain, and discharge, Neck: Negative for injury, pain, and swelling, Cardiovascular: Negative for chest pain, palpitations, and edema, Respiratory: Negative for shortness of breath, cough, wheezing, and pleuritic chest pain, Abdomen/GI: Negative for abdominal pain, nausea, vomiting, diarrhea, and constipation, Back: Negative for injury and pain, : Negative for injury, bleeding, discharge, and swelling, Skin: Negative for injury, rash, and discoloration, Neuro: Negative for headache, weakness, numbness, tingling, and seizure, Psych: Negative for depression, anxiety, suicide ideation, homicidal ideation, and hallucinations. 17:53 MS/extremity: Positive for injury or acute deformity, decreased range of motion, pain, of the left upper thigh. Exam: 17:51 Constitutional: This is a well developed, well nourished patient who is awake, alert, snw and in no acute distress. Head/Face: Normocephalic, atraumatic. Eyes: Pupils equal round and reactive to light, extra-ocular motions intact. Lids and lashes normal. Conjunctiva and sclera are non-icteric and not injected. Cornea within normal limits. Periorbital areas with no swelling, redness, or edema. ENT: Nares patent. No nasal discharge, no septal abnormalities noted. Tympanic membranes are normal and external auditory canals are clear. Oropharynx with no redness, swelling, or masses, exudates, or evidence of obstruction, uvula midline. Mucous membranes moist. Neck: Trachea midline, no thyromegaly or masses palpated, and no cervical lymphadenopathy. Supple, full range of motion without nuchal rigidity, or vertebral point tenderness. No Meningismus. Chest/axilla: Normal chest wall appearance and motion. Nontender with no deformity. No lesions are appreciated. Cardiovascular: Regular rate and rhythm with a normal S1 and S2. No gallops, murmurs, or rubs. Normal PMI, no JVD. No pulse deficits. Respiratory: Lungs have equal breath sounds bilaterally, clear to auscultation and percussion. No rales, rhonchi or wheezes noted. No increased work of breathing, no retractions or nasal flaring. Abdomen/GI: Soft, non-tender, with normal bowel sounds. No distension or tympany. No guarding or rebound. No evidence of tenderness throughout. Back: No spinal tenderness. No costovertebral tenderness. Full range of motion. Skin: Warm, dry with normal turgor. Normal color with no rashes, no lesions, and no evidence of cellulitis. Neuro: Awake and alert, GCS 15, oriented to person, place, time, and situation. Cranial nerves II-XII grossly intact. Motor strength 5/5 in all extremities. Sensory grossly intact. Cerebellar exam normal. Normal gait. Psych: Awake, alert, with orientation to person, place and time. Behavior, mood, and affect are within normal limits. 17:51 Musculoskeletal/extremity: Extremities: grossly normal except: noted in the left upper thigh: decreased ROM, pain, spasm, shortened, externally rotated. Vital Signs: 17:40 BP 132 / 74; Pulse 74; Resp 16; Temp 98.2; Pulse Ox 95% on R/A; Weight 94.35 kg; Height hb 6 ft. (182.88 cm); Pain 10/10; 18:30 BP 137 / 80; Pulse 74; Resp 16; Pulse Ox 95% on R/A; vc 17:40 Body Mass Index 28.21 (94.35 kg, 182.88 cm) hb MDM: 17:42 Patient medically screened. snw 19:38 Data reviewed: vital signs, nurses notes, lab test result(s), EKG, radiologic studies. snw Data interpreted: Pulse oximetry: on room air is 95 %. Interpretation: acceptable. Counseling: I had a detailed discussion with the patient and/or guardian regarding: the historical points, exam findings, and any diagnostic results supporting the discharge/admit diagnosis, the presence of at least one elevated blood pressure reading (>120/80) during this emergency department visit, lab results, radiology results, the need for outpatient follow up, to return to the emergency department if symptoms worsen or persist or if there are any questions or concerns that arise at home. Special discussion: I have referred the patient to see his PCP for further evaluation of high blood pressure. Based on the patient's history, exam and DX evaluation, there is no indication for emergent intervention or inpatient TX. It is understood by the patient/guardian that if the SXs persist or worsen they need to return immediately for re-evaluation. Based on the history and exam findings, there is no indication for further emergent testing or inpatient evaluation. I discussed with the patient/guardian the need to see the orthopedic surgeon for further evaluation of the symptoms. I discussed with the patient/guardian the need to see the primary care provider for further evaluation of the symptoms. 07/29 17:50 Order name: CBC with Diff; Complete Time: 18:42 snw 07/29 17:50 Order name: Chem 7 snw 07/29 17:50 Order name: PT-INR snw 07/29 17:50 Order name: Ptt, Activated snw 07/29 18:31 Order name: Basic Metabolic Panel EDMS 07/29 18:34 Order name: Protime (+INR) EDMS 07/29 17:50 Order name: Chest Single View XRAY; Complete Time: 19:35 snw 07/29 17:50 Order name: Hip Left 2 View XRAY; Complete Time: 19:35 snw 07/29 17:50 Order name: Wound Care: left forearm; Complete Time: 19:06 snw 07/29 17:50 Order name: EKG; Complete Time: 17:51 snw 07/29 18:34 Order name: PTT, Activated Partial Thromb EDRI 07/29 18:58 Order name: Hip Left Wo Con; Complete Time: 19:35 EDMS 07/29 17:50 Order name: EKG - Nurse/Tech; Complete Time: 18:19 snw Administered Medications: 18:09 Drug: fentaNYL (PF) 25 mcg {Note: RASS 0.} Route: IVP; Site: left antecubital; ll1 20:00 Follow up: Response: No adverse reaction vc 18:10 Drug: Valium 2 mg Route: IVP; Site: left antecubital; ll1 20:00 Follow up: Response: No adverse reaction vc Disposition: 07/30 09:53 Co-signature as Attending Physician, Frederick Sultana MD I agree with the assessment and kdr plan of care. Disposition: 07/30/19 19:37 Discharged to Home. Impression: Fall on same level from slipping, tripping and stumbling with subsequent striking against object, Strain and hematoma of left iliopsoas muscle. - Condition is Stable. - Discharge Instructions: Hematoma, Fall Prevention in the Home, Muscle Strain, Muscle Pain, Adult, RICE for Routine Care of Injuries, Heat Therapy. - Prescriptions for orphenadrine citrate 100 mg Oral Tablet Sustained Release - take 1 tablet by ORAL route 2 times per day As needed; 20 tablet. - Medication Reconciliation Form, Thank You Letter, Antibiotic Education, Prescription Opioid Use form. - Follow up: Emergency Department; When: As needed; Reason: Worsening of condition. Follow up: Private Physician; When: 2 - 3 days; Reason: Recheck today's complaints, Continuance of care, Re-evaluation by your physician. Signatures: Dispatcher [employer] [facility] Frederick Sultana MD MD kdr Therrien, Shelly, PHUONG-Kirsty STUDIO MANAGER-Cs[employer] Lucille Wolf RN RN Patti Dempsey RN RN vc Lewis, Lynsay, RN RN ll1 Corrections: (The following items were deleted from the chart) 07/29 17:51 17:41 Allergies: No Known Allergies; hb snw 17:52 17:51 Allergies: Dilaudid; snw ll1 20:18 19:37 07/30/2019 19:37 Discharged to Home. Impression: Fall on same level from vc slipping, tripping and stumbling with subsequent striking against object; Strain and hematoma of left iliopsoas muscle. Condition is Stable. Forms are Medication Reconciliation Form, Thank You Letter, Antibiotic Education, Prescription Opioid Use. Follow up: Emergency Department; When: As needed; Reason: Worsening of condition. Follow up: Private Physician; When: 2 - 3 days; Reason: Recheck today's complaints, Continuance of care, Re-evaluation by your physician. blaine
--- NOTE | 2019-08-04 14:43 | ER ---
Nurse's Notes [facility] Name: Cristian Echevarria Age: 68 yrs Sex: Male : 1950 Arrival Date: 07/30/2019 Time: 17:35 Bed 16 Private MD: Diagnosis: Fall on same level from slipping, tripping and stumbling with subsequent striking against object;Strain and hematoma of left iliopsoas muscle Presentation: 07/29 17:37 Chief complaint: EMS states: Tripped over dog, landed on left side, now c/o severe left hb hip pain 12/12. BP 182/80, HR 82, SpO2 95%on RA. Toradol 30mg administered 18g LAC MANAGER REIMBURSEMENT. Care prior to arrival: None. Mechanism of Injury: Fall from standing position. 17:37 Method Of Arrival: EMS: [facility] hb 17:37 Acuity: JOEL 3 hb 17:45 Coronavirus screen: Proceed with normal triage. Patient denies a cough. Patient denies vc shortness of breath or difficulty breathing. Patient denies measured and/or subjective temperature greater than 100.4F prior to today's visit. Patient denies travel on a cruise ship or to a country the [facility] currently lists as an affected area. Patient denies contact with known and/or suspected case of COVID-19. Ebola Screen: No symptoms or risks identified at this time. Initial Sepsis Screen: Does the patient meet any 2 criteria? No. Patient's initial sepsis screen is negative. Does the patient have a suspected source of infection? No. Patient's initial sepsis screen is negative. Risk Assessment: Do you want to hurt yourself or someone else? Patient reports no desire to harm self or others. Onset of symptoms was July 30, 2019 at 17:00. Triage Assessment: 17:45 General: Appears in no apparent distress. uncomfortable, Behavior is calm, cooperative, vc appropriate for age. Pain: Complains of pain in left upper thigh. EENT:. Historical: - Allergies: 17:52 Dilaudid ("makes me crazy"); ll1 - Immunization history:: Adult Immunizations up to date. - Social history:: Smoking status: Patient denies any tobacco usage or history of. Screenin:45 Abuse screen: Denies threats or abuse. Nutritional screening: No deficits noted. vc Tuberculosis screening: No symptoms or risk factors identified. Fall Risk Fall in past 12 months (25 points). Secondary diagnosis (15 points) impaired mobility, IV access (20 points). Ambulatory Aid- Crutches/Cane/Walker (15 pts). Gait- Weak (10 pts.). Mental Status- Oriented to own ability (0 pts). Total Chaudhry Fall Scale indicates High Risk Score (45 or more points). Assessment: 17:45 General: Appears in no apparent distress. uncomfortable, Behavior is calm, cooperative, vc appropriate for age. Pain: Complains of pain in left upper thigh. Neuro: Level of Consciousness is awake, alert, obeys commands, Oriented to person, place, time, situation, Appropriate for age. Cardiovascular: Capillary refill < 3 seconds Patient's skin is warm and dry. Respiratory: Airway is patent Respiratory effort is even, unlabored, Respiratory pattern is regular, symmetrical. GI: Abdomen is round non-distended. Derm: Skin is fragile, has skin tears on left forearm, wound care provided. Musculoskeletal: Circulation, motion, and sensation intact. 18:45 Reassessment: Patient appears in no apparent distress at this time. Patient and/or vc family updated on plan of care and expected duration. Pain level reassessed. Patient is alert, oriented x 3, equal unlabored respirations, skin warm/dry/pink. 19:45 Reassessment: Patient appears in no apparent distress at this time. Patient and/or vc family updated on plan of care and expected duration. Pain level reassessed. Patient is alert, oriented x 3, equal unlabored respirations, skin warm/dry/pink. Patient states feeling better. Patient states symptoms have improved. Vital Signs: 17:40 BP 132 / 74; Pulse 74; Resp 16; Temp 98.2; Pulse Ox 95% on R/A; Weight 94.35 kg; Height hb 6 ft. (182.88 cm); Pain 10/10; 18:30 BP 137 / 80; Pulse 74; Resp 16; Pulse Ox 95% on R/A; vc 17:40 Body Mass Index 28.21 (94.35 kg, 182.88 cm) hb ED Course: 17:35 Patient arrived in ED. hb 17:39 Triage completed. hb 17:40 Arm band placed on. hb 17:41 Jurgen Gonzales PA is PHCP. [facility] 17:42 PHCP role handed off by Jurgen Gonzales PA snw 17:42 Kim Vee FNP-C is PHCP. snw 17:42 Frederick Sultana MD is Attending Physician. snw 17:45 Patient has correct armband on for positive identification. Bed in low position. Call vc light in reach. Pulse ox on. NIBP on. 18:36 Patti Sparks, RN is Primary Nurse. vc 19:01 Chest Single View XRAY In Process Unspecified. EDMS 19:02 Hip Left 2 View XRAY In Process Unspecified. EDMS 19:11 Hip Left Wo Con In Process Unspecified. EDMS 20:15 No provider procedures requiring assistance completed. IV discontinued, intact, vc bleeding controlled, No redness/swelling at site. Pressure dressing applied. Administered Medications: 18:09 Drug: fentaNYL (PF) 25 mcg {Note: RASS 0.} Route: IVP; Site: left antecubital; ll1 20:00 Follow up: Response: No adverse reaction vc 18:10 Drug: Valium 2 mg Route: IVP; Site: left antecubital; ll1 20:00 Follow up: Response: No adverse reaction vc Outcome: 19:37 Discharge ordered by MD. snw 20:15 Discharged to home via wheelchair. vc 20:15 Condition: good 20:15 Discharge instructions given to patient, Instructed on discharge instructions, follow up and referral plans. Demonstrated understanding of instructions, follow-up care, medications, Prescriptions given X 2. 20:18 Patient left the ED. vc Signatures: Dispatcher [employer] ED[facility] Kim Vee FNP-C HORTICULTURAL SERVICES SUPERVISOR-Csnw Jurgen Gonzales PA PA Lucille Mantilla RN RN hb Patti Sparks, ANA PEREZ vc Bolivar Allen RN RN ll1 Corrections: (The following items were deleted from the chart) 17:51 17:41 Allergies: No Known Allergies; hb snw 17:52 17:51 Allergies: Dilaudid; snw ll1
== END 2019-07-30 20:18 | disposition home or self-care (01) ==
LOC: ER 17:25
DX: S76.812A Strain of other specified muscles, fascia and tendons at thigh level, left thigh, initial encounter (principal); W01.10XA Fall on same level from slipping, tripping and stumbling with subsequent striking against unspecified object, initial encounter; Y93.01 Activity, walking, marching and hiking; Y92.9 Unspecified place or not applicable; Z88.8 Allergy status to other drugs, medicaments and biological substances; Z85.21 Personal history of malignant neoplasm of larynx
CPT/HCPCS: 93005; 85025; 80048; 36415; 85610; 85730; 73700; 71045; 73502; 96375; 96374; 99284; J3360; J3010

== ENCOUNTER → 2023-01-04 | Day surgery (SDC) | payer OTHER ==
[2023-01-01 13:56] LABS: Absolute Lymphocytes (CBC) 0.7 K/uL (0.7-4.9); Hematocrit 36.1 % (39.6-49.0); Lymphocytes % 7.2 % (15.3-44.8); MCV 87.4 fL (80-100); MPV 7.3 fL (7.6-11.3); Platelets 185 thou/uL (152-406); RBC Red Blood Cell Count 4.13 M/uL (4.33-5.43)
[2023-01-01 14:05] LABS: Potassium 4.4 mEq/L (3.5-5.1)
--- NOTE | 2023-01-01 14:47 | RAD REPORT ---
EXAM DESCRIPTION: RAD - Chest Pa And Lat (2 Views) - 01/01/2023 1:55 pm CLINICAL HISTORY: pre op for director geophysical laboratory. Hypertension COMPARISON: Chest Single View dated 07/30/2019 TECHNIQUE: PA and lateral views of the chest were obtained. FINDINGS: Patchy bibasilar airspace opacities. Streaky opacity related to the left hilum extending p eripherally is also progressive since the prior exam. Heart size is normal and central vasculature is within normal limits. Sequelae of prior CABG again seen. No pleural effusion or pneumothorax seen. N o acute bony finding noted. IMPRESSION: Development of patchy bibasilar and left perihilar airspace opacities. Underlying pneumo bertin and/or pulmonary edema should be considered.
--- NOTE | 2023-01-03 18:08 | EKG ---
Test Date: 2023-01-01 Test Time: 13:35:04 Home Aid: JOSE GUADALUPE MEASUREMENT RESULTS: Intervals: Rate: 72 CA: 158 QRSD: 80 QT: 410 QTc: 448 [place]: P: 41 CA: 158 QRS: -7 T: 36 INTERPRETIVE STATEMENTS: Sinus rhythm with premature atrial complexes RSR' or QR pattern in V1 suggests right ventricular conduction delay Inferior infarct, age undetermined Cannot rule out Anterior infarct, age undetermined Abnormal ECG Compared to ECG 07/30/2019 18:16:06 Atrial premature complex(es) now present RSR' in V1 or V2 now present Myocardial infarct finding now present T-wave abnormality no longer present Electronically Signed On 01-03-23 18:04:30 CDT by Neel Lindsey
[~2023-01-04] MED LIST: FENTANYL CITR 100 MCG/2 ML ONE; HEPA 1000U/500MLS 2,000 UNIT/1,000 ML BAG IV ONE; HEPARIN 10,000 UNIT/10 ML VIAL IV ONE; HEPARIN 5000 UNIT/ML 1 ML VIAL ONE; LIDOCAINE 1% 20 ML MDV ONE; MIDAZOLAM HCL 2 MG/2 ML INJ ONE; NA CHLORIDE 0.9% 500 ML ONE; NITROGLYCERIN/D5W 50 MG/250 ML BTL IV ONE; VERAPAMIL HCL 10 MG/4 ML VIAL IV ONE
--- NOTE | 2023-01-04 10:59 | OP ---
Date of Procedure: 01/04/2023 Surgeon: MAUREEN GALVEZ Procedure Performed: Peripheral angiogram with runoff. Indications: Peripheral vascular disease with claudication. Access: Right femoral artery, 4-Anguillan, closed with manual pressure. Complications: None. Bleeding: Less than 20 mL. Description Of Procedure: After risks, benefits, alternatives were explained, patient agreed to the procedure and signed informed consent. Patient was brought into the cardiac catheterization laborato ry, prepped and draped in the usual sterile fashion. Then, I accessed right femoral artery using luna ropuncture kit, ultrasound guidance, fluoroscopy. Placed a 4-Anguillan pinnacle sheath and took 4-Frenc h straight pigtail catheter into the distal aorta to perform an aortogram and runoff and then removed the catheter and the sheath. Manual pressure was used for closure with good hemostasis. 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 2.Right lower extremity. Right common iliac is with 30% and the right external iliac ranges between 60% and 70% in multiple locations. Then, the profunda takes off with ostial 20% and then the SFA, t here is a proximal POLITICAL SCIENCE CHAIR of 100%, reconstitutes above the knee from the profunda and then the triple ve ssel below the knee are severely diseased about 70% diffusely. 3.Left lower extremity. The right common iliac is with 20% to 30%. Right external iliac and right common femoral with mild 20% stenosis in multiple areas. The left profunda is wide open and the left SFA is open with diffuse 60% to 70% stenosis and distally, there is focal 90% stenosis. At the tip of the vessel below the knee on the left side, also diffuse ranging between 80% to 90%, very small ve ssels. Conclusion: Severe peripheral vascular disease. Plan: Intervene at a higher level of care facility. We will plan to do intervention on the left low er extremity first and establish good flow and then attempt a POLITICAL SCIENCE CHAIR of the SFA on the right side. SR/MODL Voice ID: [id number] Report ID: [id number]
[2023-01-04 13:53] VITALS: BP 130/65; O2SAT 100
== END ==
LOC: CCL 07:00
PROVIDERS: ATTEND Internal Medicine
DX: I70.213 Atherosclerosis of native arteries of extremities with intermittent claudication, bilateral legs (principal); I70.92 Chronic total occlusion of artery of the extremities; I71.40 Abdominal aortic aneurysm, without rupture, unspecified; I25.10 Atherosclerotic heart disease of native coronary artery without angina pectoris; I65.23 Occlusion and stenosis of bilateral carotid arteries; I10 Essential (primary) hypertension; E11.9 Type 2 diabetes mellitus without complications; E78.5 Hyperlipidemia, unspecified; Z87.891 Personal history of nicotine dependence; Z79.82 Long term (current) use of aspirin; Z79.02 Long term (current) use of antithrombotics/antiplatelets; Z79.84 Long term (current) use of oral hypoglycemic drugs; Z79.899 Other long term (current) drug therapy; Z82.49 Family history of ischemic heart disease and other diseases of the circulatory system
CPT/HCPCS: 93005; 85025; 80048; 36415; 83721; 85610; 82947; 85730; 71046; 75630; 76937; C1893; J1644; J2001; J2250; J3010; J7040; 36200

== ENCOUNTER 2023-10-20 20:24 | Emergency (ER) | payer OTHER ==
[2023-10-20 20:53] LABS: Absolute Basophils 0.1 K/uL (0-0.5); Absolute Eosinophils 1.4 K/uL (0-0.5); Absolute Lymphocytes (CBC) 0.9 K/uL (0.7-4.9); Absolute Monocytes 0.6 K/uL (0.1-1.3); Absolute Neutrophil 6.3 K/uL (1.8-8.0); Eosinophils % 15.2 % (0-4.4); Hematocrit 32.2 % (39.6-49.0); Hemoglobin 9.7 g/dL (13.6-17.9); Lymphocytes % 10.2 % (15.3-44.8); MCH 25.5 pg (27.0-35.0); MCHC 30.1 g/dL (32.0-36.0); MCV 84.9 fL (80-100); MPV 7.6 fL (7.6-11.3); Monocytes % 6.1 % (3.3-12.3); Neutrophils % 67.5 % (41.7-73.7); Platelets 217 thou/uL (152-406); RBC Red Blood Cell Count 3.79 M/uL (4.33-5.43); Red Cell Distribution Width 19.8 % (12.1-15.2)
[2023-10-20] MEDS ORDERED: ALBUTEROL 2.5 MG/3 ML NEB SOL ONE (20:59)
[2023-10-20] MEDS ORDERED: IPRATROPIUM BROM 0.5MG/2.5ML ONE (20:59)
[2023-10-20] MEDS ORDERED: predniSONE 20 MG TAB ONE (20:59)
--- NOTE | 2023-10-20 21:06 | RAD REPORT ---
EXAM DESCRIPTION: RAD - Chest Single View - 10/20/2023 8:56 pm CLINICAL HISTORY: COUGH COMPARISON: Chest Pa And Lat (2 Views) dated 01/01/2023; Chest Single View dated 07/30/2019 FINDINGS: Lines: None. Lungs: Bilateral interstitial airspace disease . Pleural: Moderate left and small right pleural effusion . Cardiac: Cardiomegaly . Mediastinum: Within normal limits. Bones: No acute fractures. Sternotomy Other: None IMPRESSION: Findings most consistent with pulmonary edema with moderate left and small right pleural effusions. Superimposed pneumonia difficult to exclude radiographically.
[2023-10-20 21:08] LABS: SARS-CoV-2 Antigen CONTROL BLUE LINE VIS/BG OK; SARS-CoV-2 Antigen Rapid Res Negative (Negative)
[2023-10-20 21:10] LABS: Anion Gap 5.3 mEq/L (5.0-15.0); Potassium 4.3 mEq/L (3.5-5.1); Troponin High Sensitivity 7.8 pg/mL (<58.9)
[2023-10-20 21:35] LABS: Anisocytosis 1+; Band Neutrophils 2 % (0-1); Blood Morphology Comment NOTED (NOT SEEN); Differential Total Cells Count 100; Eosinophils 14 % (0-3); Lymphocytes 8 % (15-42); Monocytes 6 % (0-10); Platelet Estimate ADEQ; Segmented Neutrophils 70 % (40-80)
--- NOTE | 2023-10-20 21:57 | EDPHYS ---
Physician Documentation [facility] Name: Cristian Echevarria Age: 72 yrs Sex: Male : 1950 Arrival Date: 10/20/2023 Time: 20:24 Bed 2 Private MD: ED Physician William Abdi HPI: 10/19 20:31 This 72 yrs old Male presents to ER via Unassigned with complaints of ec2 Breathing Difficulty. 20:31 Patient with history of lung cancer, COPD arrives today for subjective shortness of ec2 breath. Patient on baseline 3 L oxygen requirement. Patient is been complaining of shortness of breath ongoing for 2+ months. Patient has pulse ox at home that the daughter has been monitoring and has been saturating in the upper 90s. No significant cough cold symptoms, no fevers or nausea vomiting or diarrhea.. Historical: - Allergies: 20:48 Dilaudid; vc1 - PMHx: 20:48 Throat cancer; Lung Cancer; times 3; Rheumatoid arthritis; vc1 - PSHx: 20:45 Left neck muscle removed; vc1 20:48 Open heart surgery; vc1 - Immunization history:: Adult Immunizations up to date, Client reports receiving the 2nd dose of the Covid vaccine, Pneumococcal vaccine is up to date. - Infectious Disease History:: Denies. - Social history:: Smoking status: Patient/guardian denies using tobacco, the patient reports quitting approximately 10 years ago. ROS: 20:31 Constitutional: as per hpi ec2 Exam: 20:31 Constitutional: GEN: NAD Head: atraumatic Eyes: EOMI Ears: External ears are ec2 normal. CV: regular rate LUNGS: Scattered wheezes in the lower lung esqueda. Bilaterally. ABD: non-distended SKIN: no evidence of rashes MSK: no evidence of trauma Vital Signs: 20:41 BP 147 / 66; Pulse 69; Resp 15; Pulse Ox 92% on 3 lpm NC; Weight 107.95 kg (M); Pain vc1 0/10; 21:30 BP 160 / 86; Pulse 65; Resp 18; Pulse Ox 96% on 3 lpm NC; cp4 22:00 BP 176 / 78; Pulse 65; Resp 18; Pulse Ox 96% on 3 lpm NC; cp4 20:41 Pain Scale: Adult vc1 MDM: 20:30 Patient medically screened. ec2 20:31 Data reviewed: vital signs. ED course: Patient arrives today for shortness of breath. ec2 Examination remarkable for cardiopulmonary findings as above. Will obtain lab work, EKG, chest x-ray. Differential includes volume overload, COPD exacerbation, pneumonia.. 20:45 ED course: EKG independently reviewed and interpreted by me, shows normal sinus rhythm, ec2 rate of 68, no acute ST segment elevations, intervals are nonconcerning.. 20:56 ED course: Slight anemia noted on CBC today, patient previously anemic approximately 4 ec2 years ago however has been sometime and slightly lower today. No reported bleeding.. 21:14 ED course: Metabolic profile shows slight renal dysfunction, BNP elevation at 85, ec2 troponin is within normal ranges, chest x-ray shows pulmonary edema with bilateral pleural effusions. . 21:41 ED course: Patient does have renal dysfunction noted, when compared to external ec2 records, this appears similar.. 21:56 ED course: Ultimately suspect a component of volume overload causing patient subjective ec2 shortness of breath, patient without any hypoxia, I believe patient will be an appropriate outpatient candidate for diuresis. He has outpatient follow-up in 3 days as well. Will give first dose of diuretic today and prescribed several day course of Lasix. Will discharge home. Return precautions given.. 08 20:31 Order name: Basic Metabolic Panel; Complete Time: 21:14 ec2 10/19 20:31 Order name: CBC with Diff; Complete Time: 21:40 ec2 10/19 20:31 Order name: NT PRO-BNP; Complete Time: 21:14 ec2 10/19 20:31 Order name: Troponin HS; Complete Time: 21:14 ec2 10/19 20:31 Order name: Influenza Screen (a \T\ B); Complete Time: 21:14 ec2 10/19 20:31 Order name: SARS RAPID; Complete Time: 21:14 ec2 10/19 20:58 Order name: Manual Differential; Complete Time: 21:40 EDMS 10/19 20:31 Order name: XRAY Chest (1 view); Complete Time: 21:14 ec2 10/19 20:31 Order name: EKG; Complete Time: 20:31 ec2 10/19 20:31 Order name: Cardiac monitoring; Complete Time: 20:47 ec2 10/19 20:31 Order name: EKG - Nurse/Tech; Complete Time: 20:47 ec2 10/19 20:31 Order name: IV Saline Lock; Complete Time: 20:47 ec2 10/19 20:31 Order name: Labs collected and sent; Complete Time: 20:47 ec2 10/19 20:31 Order name: O2 Per Protocol; Complete Time: 20:47 ec2 10/19 20:31 Order name: O2 Sat Monitoring; Complete Time: 20:47 ec2 Administered Medications: 21:05 Drug: predniSONE PO 40 mg PO once Route: PO; cp4 21:06 Drug: DuoNeb Nebulize (3:1) (2.5 mg - 0.5 mg) 3 ml Nebulizer once Route: Nebulizer; cp4 22:00 Drug: Furosemide IVP 20 mg IVP once; give over 2 minutes Route: IVP; Site: right 8 antecubital; Disposition Summary: 10/20/23 21:57 Discharge Ordered Notes: Location: Home ec2 Condition: Stable ec2 Diagnosis - Volume Overload ec2 - Pleural effusion, not elsewhere classified ec2 Followup: ec2 - With: Private Physician - When: - Reason: Re-evaluation by your physician Discharge Instructions: - Discharge Summary Sheet ec2 - Pleural Effusion ec2 Forms: - Medication Reconciliation Form ec2 - Antibiotic Education ec2 - Prescription Opioid Use ec2 - Patient Portal Instructions ec2 - Leadership Thank You Letter ec2 Prescriptions: - Lasix 40 mg Oral tablet - take 1 tablet ORAL route once daily for 7 days; 7 tablet; Refills: 0, Product ec2 Selection Permitted Signatures: Dispatcher [employer] Patti Betts RN RN vc1 William Abdi MD MD ec2 Ely Martínez cp4 Henry Franco RN RN jh8
--- NOTE | 2023-10-20 21:57 | ER ---
Nurse's Notes [facility] Name: Cristian Echevarria Age: 72 yrs Sex: Male : 1950 Arrival Date: 10/20/2023 Time: 20:24 Bed 2 Private MD: Diagnosis: Volume Overload;Pleural effusion, not elsewhere classified Presentation: 10/19 20:41 Chief complaint: Patient's son or daughter states: Shortness of breath for a few weeks vc1 worse today, when I check his O2 level it is fine. Coronavirus screen: Vaccine status: Patient reports receiving the 2nd dose of the covid vaccine. Client denies travel out of the [place] in the last 14 days. difficulty breathing, shortness of breath, Client presents with at least one sign or symptom that may indicate coronavirus-19. Ebola Screen: Patient negative for fever greater than or equal to 101.5 degrees Fahrenheit, and additional compatible Ebola Virus Disease symptoms Patient denies exposure to infectious person. Patient denies travel to an Ebola-affected area in the 21 days before illness onset. No symptoms or risks identified at this time. Initial Sepsis Screen: Does the patient meet any 2 criteria? No. Patient's initial sepsis screen is negative. Does the patient have a suspected source of infection? No. Patient's initial sepsis screen is negative. Risk Assessment: Do you want to hurt yourself or someone else? Patient reports no desire to harm self or others. Onset of symptoms was October 20, 2023. Care prior to arrival: Uses 3L O2 at home. Activity prior to arrival: None. Mechanism of Injury: No Mechanism of Injury. Transition of care: patient was not received from another setting of care. 20:41 Method Of Arrival: Wheelchair vc1 20:41 Acuity: JOEL 3 vc1 Triage Assessment: 22:39 Respiratory: Onset: The symptoms/episode began/occurred gradually. jh8 Historical: - Allergies: 20:48 Dilaudid; vc1 - PMHx: 20:48 Throat cancer; Lung Cancer; times 3; Rheumatoid arthritis; vc1 - PSHx: 20:45 Left neck muscle removed; vc1 20:48 Open heart surgery; vc1 - Immunization history:: Adult Immunizations up to date, Client reports receiving the 2nd dose of the Covid vaccine, Pneumococcal vaccine is up to date. - Infectious Disease History:: Denies. - Social history:: Smoking status: Patient/guardian denies using tobacco, the patient reports quitting approximately 10 years ago. Screenin:48 [facility] ED Fall Risk Assessment (Adult) History of falling in the last 3 months, cp4 including since admission No falls in past 3 months (0 pts) Confusion or Disorientation No (0 pts) Intoxicated or Sedated No (0 pts) Impaired Gait Yes (1 pt) Mobility Assist Device Used Yes (1 pt) Altered Elimination No (0 pt) Score/Fall Risk Level 0 - 2 = Low Risk Oriented to surroundings, Maintained a safe environment, Assessed \T\ reinforced patient's understanding of fall precautions, Hourly rounding (assess needs \T\ fall precautionary measures) done. Abuse screen: Denies threats or abuse. Nutritional screening: No deficits noted. Tuberculosis screening: No symptoms or risk factors identified. Assessment: 20:48 General: Appears uncomfortable, Behavior is calm, cooperative, appropriate for age. cp4 Pain: Denies pain. Neuro: Level of Consciousness is awake, alert, obeys commands, Oriented to person, place, time, situation. Cardiovascular: Rhythm is sinus rhythm. Respiratory: Airway is patent Respiratory effort is even, unlabored, Breath sounds with wheezes bilaterally. GI: No signs and/or symptoms were reported involving the gastrointestinal system. : No signs and/or symptoms were reported regarding the genitourinary system. EENT: No signs and/or symptoms were reported regarding the EENT system. Derm: No signs and/or symptoms reported regarding the dermatologic system. Musculoskeletal: No signs and/or symptoms reported regarding the musculoskeletal system. Vital Signs: 20:41 BP 147 / 66; Pulse 69; Resp 15; Pulse Ox 92% on 3 lpm NC; Weight 107.95 kg (M); Pain vc1 0/10; 21:30 BP 160 / 86; Pulse 65; Resp 18; Pulse Ox 96% on 3 lpm NC; cp4 22:00 BP 176 / 78; Pulse 65; Resp 18; Pulse Ox 96% on 3 lpm NC; cp4 20:41 Pain Scale: Adult vc1 ED Course: 20:24 Patient arrived in ED. ec2 20:30 William Abdi MD is Attending Physician. ec2 20:44 Triage completed. vc1 20:47 Ely Martínez is Primary Nurse. cp4 20:47 SARS RAPID Sent. cp4 20:47 Influenza Screen (a \T\ B) Sent. cp4 20:47 Basic Metabolic Panel Sent. cp4 20:47 CBC with Diff Sent. cp4 20:47 NT PRO-BNP Sent. cp4 20:47 Troponin HS Sent. cp4 20:48 No provider procedures requiring assistance completed. Initial lab(s) drawn, by il, cp4 sent to lab. EKG done, by ED staff, reviewed by William Abdi MD COVID swab sent to lab. Flu and/or RSV swab sent to lab. Inserted saline lock: 20 gauge in right antecubital area, using aseptic technique. Blood collected. Flushed with 10 mL NS. 20:48 Placed in gown. Bed in low position. Call light in reach. Side rails up X2. cp4 20:49 Arm band placed on right wrist. vc1 20:57 XRAY Chest (1 view) In Process Unspecified. EDNJ 22:39 IV discontinued. [facility] 22:39 Provided Education on: follow up. [facility] Administered Medications: 21:05 Drug: predniSONE PO 40 mg PO once Route: PO; cp4 21:06 Drug: DuoNeb Nebulize (3:1) (2.5 mg - 0.5 mg) 3 ml Nebulizer once Route: Nebulizer; cp4 22:00 Drug: Furosemide IVP 20 mg IVP once; give over 2 minutes Route: IVP; Site: right [facility] antecubital; Medication: 20:48 VIS not applicable for this client. cp4 Outcome: 21:57 Discharge ordered by . 2 22:39 Discharged to home via wheelchair, [facility] 22:39 Condition: good 22:39 Discharge instructions given to patient, family, Instructed on discharge instructions, follow up and referral plans. 22:51 Patient left the ED. cp4 Signatures: Dispatcher [employer] EDPatti Davis RN RN vc1 William Abdi MD MD ec2 Potter, Christina cp4 Henry Franco, ANA RN [facility]
[2023-10-20] MEDS ORDERED: FUROSEMIDE 20 MG/ 2ML VIAL ONE (22:00)
[2023-10-20 22:59] VITALS: O2SAT 96
[2023-10-20 23:00] VITALS: BP 176/78
== END 2023-10-20 22:51 | disposition home or self-care (01) ==
LOC: ER 20:24
DX: E87.70 Fluid overload, unspecified (principal); J90 Pleural effusion, not elsewhere classified; Z99.81 Dependence on supplemental oxygen; Z85.118 Personal history of other malignant neoplasm of bronchus and lung; Z85.89 Personal history of malignant neoplasm of other organs and systems; Z11.52 Encounter for screening for COVID-19
CPT/HCPCS: 85025; 80048; 36415; 84484; 83880; 87804 ×2; 71045; 94640; 96374; 99285; 87811; J7512; J1940; J7613; J7644; 93005

== ENCOUNTER 2023-12-06 16:37 | Inpatient (IN) | payer OTHER ==
--- NOTE | 2023-12-06 17:38 | RAD REPORT ---
EXAMINATION: XR LEFT ANKLE CLINICAL INDICATION: Male, 73 years old. fall;[facility] fall;Pain Bed Name: 17 TECHNIQUE: 3 view radiograph of the left ankle were obtained. COMPARISON: No prior exam. FINDINGS: Trimalleolar fracture is suspected. Both the medial and the lateral fractures are largely n ondisplaced. Small posterior malleolar fracture also present. Small calcaneal spurs. Moderate atherosclerosis.
--- NOTE | 2023-12-06 17:45 | RAD REPORT ---
EXAM: CT brain without contrast HISTORY: fall COMPARISON: None TECHNIQUE: Multiple contiguous axial images were obtained and a CT of the brain without contrast. Sag ittal and coronal reformats were performed. One or more of the following dose reduction techniques were used: Automated exposure control, adjust ment of the mA and/or kV according to patient size, and/or iterative reconstruction. FINDINGS:No evidence of hydrocephalus, intracranial hemorrhage, or extra-axial fluid collection. The brain is normal in morphology. No evidence of midline shift or areas of brain edema. The calvarium is intact. The visualized paranasal sinuses and mastoid air cells are essentially clear . IMPRESSION: No evidence of acute intracranial abnormality. EXAM: CT of the cervical spine without contrast HISTORY: Neck deneen, injury [facility] MAIN Y fall Bed Name: 17 COMPARISON: None TECHNIQUE: Multiple contiguous axial images were obtained in a CT of the cervical spine without contr ast. Sagittal and coronal reformats were performed. FINDINGS: The vertebral bodies demonstrate normal height and alignment. No evidence of acute fracture or subluxation.. Mild cervical degenerative changes. Mild levoscoliosis. No prevertebral soft tissue swelling is seen. The posterior facets are well aligned. Normal alignment of the skull base with the cervical spine is seen. The lung apices are unremarkable. IMPRESSION: No evidence of acute osseous abnormality of the cervical spine.
[2023-12-06 18:01] LABS: Specific Gravity 1.016 (1.005-1.030); Urine Bilirubin NEGATIVE (Negative); Urine Blood Negative (Negative); Urine Clarity Clear (Clear); Urine Color Light-Yellow (Yellow); Urine Glucose NEGATIVE (Negative); Urine Ketones NEGATIVE (Negative); Urine Microscopic Reflex YN NO UMIC; Urine Nitrite NEGATIVE (Negative); Urine Protein NEGATIVE (Negative); Urine Urobilinogen Normal (Normal); Urine pH 5.5 (5.0-7.0)
--- NOTE | 2023-12-06 18:07 | EDPHYS ---
Physician Documentation [facility] Name: Cristian Echevarria Age: 73 yrs Sex: Male : 1950 Arrival Date: 12/06/2023 Time: 16:37 Bed 17 Private MD: ED Physician Leon Zimmerman HPI: 12/05 17:12 This 73 yrs old Male presents to ER via EMS with complaints of Fall Injury, Ankle ms3 Injury. 17:12 73-year-old male with past medical history of lung cancer, rheumatoid arthritis, throat ms3 cancer presents to the emergency department for fall. Patient states he fell at 5:30 AM after tripping over his oxygen tubing on the way to the restroom. Patient states he fell on his buttocks. He states his pain is 10/10 in the left ankle.. Historical: - Allergies: 16:42 Dilaudid; kc6 - PMHx: 16:42 Lung Cancer; times 3; Rheumatoid Arthritis; throat cancer; kc6 - PSHx: 16:42 Left neck muscle removed; open heart surgery; kc6 - Immunization history:: Adult Immunizations not up to date. - Infectious Disease History:: Denies. - Social history:: Smoking status: Patient denies any tobacco usage or history of. ROS: 17:12 Constitutional: Negative for fever, and chills. Cardiovascular: Negative for chest ms3 pain, and palpitations. Respiratory: Negative for shortness of breath, cough, wheezing, and pleuritic chest pain, Abdomen/GI: Negative for abdominal pain, nausea, vomiting, diarrhea, and constipation, 17:12 MS/extremity: Positive for pain, of the Left ankle, Exam: 17:12 Constitutional: This is a well developed, well nourished patient who is awake, alert, ms3 and in no acute distress. Cardiovascular: Regular rate and rhythm with a normal S1 and S2. No gallops, murmurs, or rubs. Normal PMI, no JVD. No pulse deficits. Respiratory: Lungs have equal breath sounds bilaterally, clear to auscultation and percussion. No rales, rhonchi or wheezes noted. No increased work of breathing, no retractions or nasal flaring. Abdomen/GI: Soft, non-tender, with normal bowel sounds. No distension or tympany. No guarding or rebound. No evidence of tenderness throughout. Skin: Warm, dry with normal turgor. Normal color with no rashes, no lesions, and no evidence of cellulitis. 17:12 Musculoskeletal/extremity: Extremities: noted in the Left ankle: pain, swelling, tenderness, Vital Signs: 16:41 BP 118 / 93; Pulse 77; Resp 18 S; Temp 98.5(O); Pulse Ox 98% on 3 lpm NC; Weight 98 kg kc6 (M); Height 6 ft. 0 in. (R); 19:09 BP 113 / 93; Pulse 88; Resp 18 S; Pulse Ox 96% on 3 lpm NC; kc6 20:10 BP 115 / 56; Pulse 90; Resp 16; Pulse Ox 95% ; dd2 21:15 BP 122 / 73; Pulse 93; Resp 16; Pulse Ox 97% ; dd2 22:42 BP 138 / 61; Pulse 73; Resp 16; Pulse Ox 97% ; Pain 0/10; dd2 16:41 Body Mass Index 29.30 (98.00 kg, 182.88 cm) kc6 22:42 Pain Scale: Adult dd2 MDM: 17:12 Differential diagnosis: closed head injury, contusion, fracture, sprain, strain. ms3 17:14 Patient medically screened. ms3 18:07 Data reviewed: vital signs, nurses notes, lab test result(s), urinalysis, radiologic ms3 studies, CT scan, plain films, and as a result, I will discharge patient. Independent interpretation of the following test(s) in the Emergency Department X-Ray: My interpretation is Left ankle x-ray reviewed reveals trimalleolar fracture. Historians other than the Patient: EMS: . Counseling: I had a detailed discussion with the patient and/or guardian regarding the historical points, exam findings, and any diagnostic results supporting the discharge/admit diagnosis, the need for outpatient follow up, to return to the emergency department if symptoms worsen or persist or if there are any questions or concerns that arise at home. Special discussion: I discussed with the patient/guardian in detail that at this point there is no indication for admission to the hospital. It is understood, however, that if the symptoms persist or worsen the patient needs to return immediately for re-evaluation. 18:11 ED course: Per patient's daughter patient has been increasingly confused and it is not ms3 safe for her father to be discharged home a this time as they cannot care for him and he has fallen 4 times in the last week.. 12/05 17:41 Order name: Urinalysis w/ reflexes; Complete Time: 18:01 ms3 12/05 18:11 Order name: CBC with Diff ms3 12/05 18:11 Order name: CMP; Complete Time: 19:04 ms3 12/05 20:26 Order name: CBC Smear Scan EDMS 12/05 20:36 Order name: Urinalysis w/ reflexes EDMS 12/05 20:36 Order name: CBC with Automated Diff EDMS 12/05 20:36 Order name: CBC with Automated Diff EDMS 12/05 20:36 Order name: Comprehensive Metabolic Panel EDMS 12/05 20:36 Order name: Comprehensive Metabolic Panel EDMS 12/05 17:12 Order name: CT Head C Spine; Complete Time: 18:01 ms3 12/05 17:12 Order name: Ankle Left 3 View XRAY; Complete Time: 18:01 ms3 12/05 18:21 Order name: CXR XRAY; Complete Time: 18:59 ms3 12/05 20:36 Order name: Physical Therapy Consult EDMS 12/05 18:02 Order name: Splint - Long Leg: Posterior w/ Stirrup; Complete Time: 18:26 ms3 Administered Medications: No medications were administered Disposition Summary: 12/06/23 19:21 Hospitalization Ordered Notes: Hospitalization Status: Observation ms3 Provider: Ej Alston ms3 Condition: Stable(12/06/23 19:21) ms3 Problem: new ms3 Symptoms: are unchanged ms3 Bed/Room Type: Standard ms3 Location: Telemetry/MedSurg (Inpatient)(12/06/23 22:50) vc1 Room Assignment: 409(12/06/23 22:58) Diagnosis - Displaced trimalleolar fracture of left lower leg, initial encounter for closed ms3 fracture - Altered mental status, unspecified ms3 - Anemia, unspecified ms3 - Lung cancer ms3 Forms: - Medication Reconciliation Form ms3 - SBAR form ms3 - Leadership Thank You Letter ms3 Signatures: Dispatcher [employer] Rona Carlton RN RN cg Leon Zimmerman DO DO ms3 Patti Sparks RN RN vc1 Lisa Headley RN RN kc6 [facility] ABHIJEET PICKARD RN RN dd2 Corrections: (The following items were deleted from the chart) 18:17 18:07 Home ms3 ms3 18:17 18:07 Stable ms3 ms3 18:17 18:07 Nondisplaced trimalleolar fracture of left lower leg, initial encounter for ms3 closed fracture ms3 18:17 18:07 Fall on same level, unspecified ms3 ms3 21:23 19:21 Telemetry/MedSurg (observation) ms3 kmf 21:23 19:21 ms3 kmf 21:23 21:23 kmf kmf 22:50 21:23 [facility] ER HOLD kmf vc1 22:50 21:23 HLD2 kmf vc1 22:58 22:50 vc1 cg
--- NOTE | 2023-12-06 18:07 | ER ---
Nurse's Notes [facility] Name: Cristian Echevarria Age: 73 yrs Sex: Male : 1950 Arrival Date: 12/06/2023 Time: 16:37 Bed 17 Private MD: Diagnosis: Displaced trimalleolar fracture of left lower leg, initial encounter for closed fracture;Altered mental status, unspecified;Anemia, unspecified;Lung cancer Presentation: 12/05 16:41 Chief complaint: EMS states: they were toned out for a fall. pt reports left ankle pain kc6 and swelling. states he has fallen twice today and tends to be fall prone. Coronavirus screen: At this time, the client does not indicate any symptoms associated with coronavirus-19. Ebola Screen: No symptoms or risks identified at this time. Initial Sepsis Screen: Does the patient meet any 2 criteria? No. Patient's initial sepsis screen is negative. Does the patient have a suspected source of infection? No. Patient's initial sepsis screen is negative. Risk Assessment: Do you want to hurt yourself or someone else? Patient reports no desire to harm self or others. Onset of symptoms was December 06, 2023. 16:41 Method Of Arrival: EMS: [facility] kc6 16:41 Acuity: JOEL 3 kc6 Triage Assessment: 16:42 General: Appears in no apparent distress. uncomfortable, obese, unkempt, well kc6 developed, Behavior is calm, cooperative, appropriate for age. Pain: Complains of pain in left foot. EENT: No signs and/or symptoms were reported regarding the EENT system. Neuro: Level of Consciousness is awake, alert, obeys commands, Oriented to person, place, Appropriate for age. Cardiovascular: Capillary refill < 3 seconds. Respiratory: Airway is patent Trachea midline Respiratory effort is even, unlabored, Respiratory pattern is regular, symmetrical. GI: No signs and/or symptoms were reported involving the gastrointestinal system. : No signs and/or symptoms were reported regarding the genitourinary system. Derm: Skin is intact, is healthy with good turgor, Skin is pink, warm \\T\\ dry. Bruising that is dark purple, on left foot. Musculoskeletal: Range of motion: intact in all extremities, Swelling present in left foot. Historical: - Allergies: 16:42 Dilaudid; kc6 - PMHx: 16:42 Lung Cancer; times 3; Rheumatoid Arthritis; throat cancer; kc6 - PSHx: 16:42 Left neck muscle removed; open heart surgery; kc6 - Immunization history:: Adult Immunizations not up to date. - Infectious Disease History:: Denies. - Social history:: Smoking status: Patient denies any tobacco usage or history of. Screenin:44 [facility] ED Fall Risk Assessment (Adult) History of falling in the last 3 months, kc6 including since admission Yes- fall prone (multiple falls) (3 pts) Confusion or Disorientation No (0 pts) Intoxicated or Sedated No (0 pts) Impaired Gait Yes (1 pt) Mobility Assist Device Used Yes (1 pt) Altered Elimination No (0 pt) Score/Fall Risk Level 3 or more points = High Risk Oriented to surroundings, Maintained a safe environment, Educated pt \\T\\ family on fall prevention, incl call for assistance when getting out of bed. Abuse screen: Denies threats or abuse. Denies injuries from another. Nutritional screening: No deficits noted. Tuberculosis screening: No symptoms or risk factors identified. Assessment: 16:44 Reassessment: please see triage. kc6 17:45 Reassessment: Patient appears in no apparent distress at this time. No changes from 6 previously documented assessment. Patient and/or family updated on plan of care and expected duration. Pain level reassessed. 18:30 Reassessment: spoke with pts daughter via telephone. she states, "my tells me kc6 you guys are discharging him and I'm just a little concerned because he's been increasingly confused, was running fever with the ambulance, and has fallen three times today. he had a procedure done yesterday at [facility] and they drained 700 mL of fluids and I feel like he's been getting worse since then. My can't help him up and I'm out of town." Dr. Zimmerman made aware. 18:45 Reassessment: Patient appears in no apparent distress at this time. No changes from 6 previously documented assessment. Patient and/or family updated on plan of care and expected duration. Pain level reassessed. 19:13 Reassessment: Dr. Zimmerman at bedside speaking with pt and family regarding plan of care. [facility] 23:08 Reassessment: This RN and FORENSIC ACCOUNTANT attempted to change patient into a hospital gown. dd2 Pt refusing multiple times and becoming upset. Notified Charge, RN. Vital Signs: 16:41 BP 118 / 93; Pulse 77; Resp 18 S; Temp 98.5(O); Pulse Ox 98% on 3 lpm NC; Weight 98 kg kc6 (M); Height 6 ft. 0 in. (R); 19:09 BP 113 / 93; Pulse 88; Resp 18 S; Pulse Ox 96% on 3 lpm NC; kc6 20:10 BP 115 / 56; Pulse 90; Resp 16; Pulse Ox 95% ; dd2 21:15 BP 122 / 73; Pulse 93; Resp 16; Pulse Ox 97% ; dd2 22:42 BP 138 / 61; Pulse 73; Resp 16; Pulse Ox 97% ; Pain 0/10; dd2 16:41 Body Mass Index 29.30 (98.00 kg, 182.88 cm) kc6 22:42 Pain Scale: Adult dd2 ED Course: 16:40 Patient arrived in ED. kc6 16:41 Lisa Headley, ANA is Primary Nurse. kc6 16:42 Triage completed. kc6 16:42 Arm band placed on. kc6 16:44 Leon Zimmerman DO is Attending Physician. ms3 16:44 Patient has correct armband on for positive identification. Bed in low position. Call kc6 light in reach. Side rails up X2. Adult w/ patient. Pulse ox on. NIBP on. Door closed. Noise minimized. Lights dimmed. Warm blanket given. Pillow given. 16:44 Maintain EMS IV. Dressing intact. Good blood return noted. Site clean \\T\\ dry. Gauge \\T\\ allie 6 site: 20G RFA. Flushed with 10 mL NS. Oxygen administration via nasal cannula \\T\\ 3L/min. 17:31 Ankle Left 3 View XRAY In Process Unspecified. EDMS 17:37 CT Head C Spine In Process Unspecified. EDMS 17:55 Urinalysis w/ reflexes Sent. kc6 17:55 Straight cath inserted, using sterile technique, 16 Fr. Specimen obtained. Returned [facility] clear yellow urine. Patient tolerated well. 18:05 Charli Blake MD is Referral Physician. ms3 18:26 Andrew wrap to left ankle Orthoglass splint: Posterior long leg splint applied on left kc6 leg. stirrup splint applied on left leg. 18:44 CXR XRAY In Process Unspecified. EDMS 19:09 Report given to Carmen Carey RN. kc6 19:21 Ej Alston MD is Hospitalizing Provider. ms3 22:42 Provided Education on: ADMISSION. dd2 23:08 No provider procedures requiring assistance completed. dd2 23:08 Patient admitted, IV remains in place. dd2 Administered Medications: No medications were administered Medication: 22:42 VIS not applicable for this client. dd2 Outcome: 18:07 Discharge ordered by . ms3 19:21 Decision to Hospitalize by Provider. ms3 12/06 00:20 Admitted to Med/surg accompanied by tech, via stretcher, with chart, dd2 Condition: stable Instructed on the need for admit, 00:23 Patient left the ED. dd2 Signatures: Dispatcher [employer] EDMS Leon Zimmerman DO DO ms3 Lisa Headley RN RN kc6 DAVIS, DIANA, RN RN dd2 Corrections: (The following items were deleted from the chart) 12/05 18:27 18:26 Orthoglass splint: kc6 kc6 19:09 16:42 General: Appears in no apparent distress. uncomfortable, obese, unkempt, well kc6 developed, Behavior is calm, cooperative, appropriate for age, kc6 19:09 16:42 Neuro: Level of Consciousness is awake, alert, obeys commands, Oriented to kc6 person, place, time, situation, Appropriate for age kc6 19:09 17:45 Reassessment: Patient appears in no apparent distress at this time. No changes kc6 from previously documented assessment. Patient and/or family updated on plan of care and expected duration. Pain level reassessed. kc6
[2023-12-06 18:46] LABS: Absolute Basophils 0.1 K/uL (0-0.5); Absolute Eosinophils 0.7 K/uL (0-0.5); Absolute Lymphocytes (CBC) 0.7 K/uL (0.7-4.9); Absolute Monocytes 0.9 K/uL (0.1-1.3); Absolute Neutrophil 8.4 K/uL (1.8-8.0); Basophils % 0.5 % (0-1.3); Eosinophils % 6.9 % (0-4.4); Hematocrit 30.1 % (39.6-49.0); Hemoglobin 9.3 g/dL (13.6-17.9); Lymphocytes % 6.8 % (15.3-44.8); MCH 24.7 pg (27.0-35.0); MCHC 31.1 g/dL (32.0-36.0); MCV 79.5 fL (80-100); MPV 7.4 fL (7.6-11.3); Monocytes % 8.3 % (3.3-12.3); Neutrophils % 77.5 % (41.7-73.7); Platelets 188 thou/uL (152-406); RBC Red Blood Cell Count 3.78 M/uL (4.33-5.43); Red Cell Distribution Width 20.6 % (12.1-15.2)
--- NOTE | 2023-12-06 18:56 | RAD REPORT ---
EXAMINATION: ONE VIEW CHEST XR CLINICAL INDICATION: fall, ams TECHNIQUE: Frontal chest projection is submitted. Examination is limited by patient positioning and t echnique. COMPARISON: 10/20/2023 FINDINGS: Moderate bilateral pulmonary opacities are present, slightly greater on the left. The heart is modera tely enlarged in size. Sternotomy wires are present. IMPRESSION: Extensive bilateral pulmonary opacities show stability since 10/20/2023. No acute findings demonstrate d.
[2023-12-06 18:59] LABS: Albumin 2.8 g/dL (3.4-5.0); Albumin/Globulin Ratio 0.7 (1.1-1.8); Anion Gap 5.8 mEq/L (5.0-15.0); Bilirubin Total 0.5 mg/dL (0.2-1.0); Globulin 3.8 g/dL (2.3-3.5); Potassium 3.8 mEq/L (3.5-5.1); Protein, Total 6.6 g/dL (6.4-8.2)
[2023-12-06 20:25] LABS: Anisocytosis 1+; Blood Morphology Comment NOTED (NOT SEEN); Platelet Estimate ADEQ; Poikilocytosis 1+; White Blood Cell Scan OK (OK)
[2023-12-06] MEDS ORDERED: ACETAMINOPHEN 325 MG TABLET PO PRN (20:31)
[2023-12-06] MEDS ORDERED: ONDANSETRON 4 MG/2 ML VIAL IV PRN (20:31)
--- NOTE | 2023-12-06 20:31 | P.HP ---
Certification for Inpatient Patient admitted to: Inpatient With expected LOS: >2 Midnights Practitioner: I am a practitioner with admitting privileges, knowledge of patient current condition, hospital course, and medical plan of care. Services: Services provided to patient in accordance with Admission requirements found in Title 42 Section 412.3 of the Code of Federal Regulations Patient History Date of Service: 12/07/23 Reason for admission: multiple falls, AMS History of Present Illness: 73 yrs old Male past medical history of lung cancer, rheumatoid arthritis, throat cancer, CAD status post CABG,, chronic hypoxic respiratory failure brought to ER with altered mental status and multiple falls. Patient is a poor historian and cannot offer any manage history hence most of the history is obtained from the chart review and also talking with the ER physician and the family member at the bedside. He states he fell at 5:30 AM after tripping over his oxygen tubing on the way to the restroom. Patient states he fell on his buttocks. He states his pain is 10/10 in the left ankle.. He was assessed in the ER and ankle x-ray was suggestive trimalleolar fracture and splinted for outpatient follow-up. Patient is being admitted for further management and may need placement Allergies hydromorphone [From Dilaudid] Adverse Reaction (Verified 01/01/23 13:16) Itching Home Medications: Allopurinol 12/07/23 Atorvastatin Calcium 40 mg PO DAILY 12/07/23 Gabapentin 12/07/23 Levothyroxine [Synthroid] 88 mcg PO 12/07/23 Oxycodone HCl 12/07/23 - Past Medical/Surgical History Past Medical History: Reviewed- Non-Contributory Past Surgical History: Reviewed- Non-Contributory - Family History Family History: Reviewed- Non-Contributory - Family History Father History Unknown: Yes - Social History Smoking Status: Never smoker Review of Systems is unable to be obtained Physical Examination - Vital Signs Temperature: 97.2 F Blood Pressure: 136/66 Pulse: 90 Respirations: 18 Pulse Ox (%): 94 - Physical Exam General: Alert, Oriented x2, Mild distress HEENT: Atraumatic, Normocephalic Neck: Supple, 2+ carotid pulse no bruit Respiratory: Clear to auscultation bilaterally, Normal air movement Cardiovascular: Regular rate/rhythm, Normal S1 S2, No gallops Capillary refill: <2 Seconds Gastrointestinal: Soft and benign, W/out hepatosplenomegaly Musculoskeletal: No clubbing, Tenderness, Cast in place Integumentary: No breakdown, No tenderness/swelling Neurological: Normal speech, Normal strength at 5/5 x4 extr, Other (Confused ) Lymphatics: No axilla or inguinal lymphadenopathy - Studies Laboratory Data (last 24 hrs) 12/06/23 12/06/23 18:34 18:34 WBC 10.80 Hgb 9.3 L Hct 30.1 L Plt Count 188 Sodium 137 Potassium 3.8 BUN 25 H Creatinine 1.67 H Glucose 101 Total Bilirubin 0.5 AST 15 ALT 15 L Alkaline Phosphatase 94 Assessment and Plan - Plan Multiple falls Monitor closely on telemetry PT eval May need placement to SNF Case management consult Acute encephalopathy metabolic Altered mental status Monitor neuro vital signs closely Patient does not have a history of dementia officially diagnosed Will monitor Neurology evaluation either inpatient or outpatient Trimalleolar fracture of left ankle Need outpatient follow-up Splinted in the ER Pain control Hypertension Antihypertensives titrated Continue home medications and titrate as needed CHIOMA Monitor renal parameters Electrolytes monitor and replace accordingly Anemia of chronic disease Monitor H&H closely No overt bleeding at this time GI/DVT prophylaxis Advanced directive full code Discharge Plan: Custodial Plan to discharge in: 48 Hours - Advance Directives Does patient have a Living Will: No Does patient have a Durable POA for Healthcare: No - Code Status/Comfort Care Code Status: Full Code Time Spent Managing Pts Care (In Minutes): 48
[2023-12-06] MEDS: NA CHLORIDE 0.9% 1,000 ML IV SCH (21:00)
[2023-12-06] MEDS ORDERED: NA CHLORIDE 0.9% 1,000 ML ONE (23:46)
[2023-12-07 01:29] VITALS: BMI 28.8
[2023-12-07] MEDS: MORPHINE 2 MG/ML SYR IV PRN (01:59)
[2023-12-07 06:41] LABS: Absolute Eosinophils 0.8 K/uL (0-0.5); Absolute Lymphocytes (CBC) 0.9 K/uL (0.7-4.9); Absolute Monocytes 0.9 K/uL (0.1-1.3); Absolute Neutrophil 6.9 K/uL (1.8-8.0); Basophils % 0.5 % (0-1.3); Eosinophils % 8.4 % (0-4.4); Hemoglobin 8.5 g/dL (13.6-17.9); Lymphocytes % 9.6 % (15.3-44.8); MCH 25.2 pg (27.0-35.0); MCHC 31.4 g/dL (32.0-36.0); MCV 80.2 fL (80-100); MPV 7.5 fL (7.6-11.3); Neutrophils % 72.5 % (41.7-73.7); Platelets 178 thou/uL (152-406); RBC Red Blood Cell Count 3.37 M/uL (4.33-5.43); Red Cell Distribution Width 20.4 % (12.1-15.2)
[2023-12-07 07:02] LABS: AST/SGOT 13 U/L (15-37); Albumin 2.5 g/dL (3.4-5.0); Albumin/Globulin Ratio 0.7 (1.1-1.8); Alkaline Phosphatase 90 U/L (45-117); Anion Gap 3.9 mEq/L (5.0-15.0); BUN Blood Urea Nitrogen 22 mg/dL (7-18); Bicarbonate 36 mEq/L (21-32); Bilirubin Total 0.6 mg/dL (0.2-1.0); Globulin 3.7 g/dL (2.3-3.5); Glomerular Filtration Rate 57 ml/min (=/>90); Glucose Level 121 mg/dL (74-106); Potassium 3.9 mEq/L (3.5-5.1); Protein, Total 6.2 g/dL (6.4-8.2); Sodium Level 137 mEq/L (136-145)
[2023-12-07 07:09] LABS: ALT/SGPT < 14 U/L (16-61)
[2023-12-07] MEDS: ENOXAPARIN 40 MG/0.4 ML SQ SCH (08:01)
[2023-12-07] MEDS: allopurinoL 100 MG TAB PO SCH (12:18)
--- NOTE | 2023-12-07 14:17 | RAD REPORT ---
EXAMINATION: MRI BRAIN WITHOUT CONTRAST CLINICAL INDICATION: Acute encephalopathy TECHNIQUE: Multiplanar multisequence MR images of the brain were obtained without intravenous contras t. Unless otherwise specified, incidental findings do not require dedicated imaging follow-up. COMPARISON: 12/06/2023 CT study FINDINGS: INTRACRANIAL: Diffusion-weighted images show no acute or early subacute infarction. There is mild bra in atrophy with mildT2/FLAIR hyperintensities in the periventricular and deep white matter regions, likely representing chronic microvascular ischemic changes. There is no mass effect or midline shift. No abnormal extraaxial fluid collection. VASCULATURE: Normal signal voids in the larger intracranial arteries and dural venous sinuses. SINUSES: Mild bilateral mastoid effusions. BONE: The marrow signal pattern is within normal limits. IMPRESSION: No significant intracranial abnormalities. Mild mastoid effusions bilaterally.
--- NOTE | 2023-12-07 17:27 | CON ---
Reason For Consultation: Consultation called because of altered mental status with multiple falls. History Of Present Illness: Mr. Echevarria is a 73-year-old patient with lung cancer that is actually b eing further diagnosed and to be treated at [facility], rheumatoid arthritis. Also, with throat can cer; coronary artery disease, status post multivessel bypass; chronic hypoxic respiratory failure, wh o has had in addition Dupuytren contracture of the hands with arthritic changes and difficulty graspi ng objects. The patient's son-in-law was at the bedside and provided information with the patient an d also from chart review. The patient himself said he had been getting weaker and weaker in his legs and his hands would not hold onto objects such as a grab bar as his hands were weaker and he would l ose balance and fall. The patient apparently again attempted to get up around 5:30 in the morning an d his oxygen, which he has tubing was in the way. He could not hold onto nearby objects and fell on the buttocks. He also impacted the left leg. He developed severe pain 10/10 in the left leg and was brought to [facility]. Imaging in the left leg showed a trimalleolar fracture and he was s plinted for followup and evaluation by the orthopedic service. His trauma series included head and c ervical spine CT scan showed no evidence of acute intracranial abnormality. Cervical spine without c ontrast showed vertebral bodies normal height and alignment. No evidence of acute fracture, subluxat ion. Mild levoscoliosis. No prevertebral soft tissue swelling seen. Mild degenerative disk disease . The posterior facets are well aligned. Normal alignment of the skull base with cervical spine is seen. The lung apices are unremarkable. No evidence of osseous abnormality in the cervical spine. Since his hospitalization, the patient has been able to interact appropriately, answer questions. At times, not quite exactly sure where he is, but he follows commands appropriately. He can relate a s tory as to what happened to him in a coherent manner. Allergies: HYDROMORPHONE CAUSES ITCHING. Medications: At home, allopurinol, atorvastatin, gabapentin, levothyroxine, oxycodone. Family History: Noncontributory. Social History: No alcohol, tobacco, or IV drug use. Review of Systems: He reports Dupuytren contracture in the hands, weakness of the hands, weakness of his legs, and legs giving out. His son-in-law says he sits most of the time and is not up and mobilizing, does not exer cise much, does not move around much. Otherwise, on his review of systems he has no fevers, chills. There are myalgias, arthralgias, hand pain, lower extremity weakness. No issues such as constipatio n. Physical Examination: Vital Signs: Blood pressure 136/66, pulse 90, respiratory rate 16, temperature 97.2, oxygen saturati on 93%. Weight 230 pounds, height 6 feet, BMI 28.9. General: Mr. Echevarria is resting in bed. He is appearing in no acute distress. HEENT: He appears normocephalic, atraumatic. Sclerae anicteric. Extremities: He does have Dupuytren contracture with fourth and fifth digits held very flexed, diffi cult to extend his fingers. He does have nodularity of the proximal and distal interphalangeal joint s in both hands consistent with arthritis. He does have bruising in the forearms. His left leg is i n a splint, bandaged from the foot to the knee. Neuro: In terms of his cranial nerve exam, no obvious focal deficits. On his motor, no focal defici ts, just giveaway weakness and weakness in the upper extremities because of his Dupuytren contracture , weakness with raising the legs off the bed because of debility more likely and less likely stroke a s he has no focal deficits. Stocking-glove loss, light touch temperature, depressed reflexes. Laboratory Studies: White blood cell count 9.5, hemoglobin 8.5, platelets 178. Sodium 137, potassiu m 3.9, chloride 101, BUN 22, creatinine 1.31. Hemoglobin A1c 5.5. Calcium 9.4. AST 13, ALT 14, alb umin 2.5, total protein 6.2. Urinalysis is normal. Chest x-ray shows extensive bilateral pulmonary opacities, which were stable since 10/20/2023. Sternotomy wire present. Heart moderately enlarged i n size. No acute findings identified. Assessment: Mr. Echevarria is a 73-year-old patient with debility. He has a fracture in the left ankle . His upper extremities, he has Dupuytren contractures in the hands, making it difficult to hold ont o objects. He has some atrophy noted in the intrinsic muscles of the hand, proximal weakness in the lower extremities and some difficulty with quick responses. He does follow simple instructions witho ut significant difficulty and probably has a mild impairment in cognitive functioning. There is no e vidence of a systemic infection. He has reported lung cancer, which is being evaluated to be treated at [facility]. Plan: I agree with volume management. He is on IV normal saline. The Lipitor for dyslipidemia, Heidy enox for DVT prophylaxis. Has allopurinol for gout. He should be evaluated by therapy to determine what level of therapy he is able to withstand. At this point, unlikely he is able to withstand 3 radha rs of therapy a day, however, it is possible that the patient may be able to do that with encourageme nt. He is apparently in the process of being accepted to an inpatient rehabilitation unit where he w ill be able to receive therapy while he continues to heal from the fracture in the left ankle. He is not at this point ready for discharge home as he is likely to have further injury or additional frac tures. ZENA/DIEGO Voice ID: [id number] Report ID: [id number]
[2023-12-07] MEDS ORDERED: MORPHINE *EXTENDED RELEASE* 15 MG TAB PO ONE (21:12)
[2023-12-07] MEDS: GABAPENTIN 400 MG CAP PO SCH (21:19)
[2023-12-07] MEDS: ATORVASTATIN 40 MG TAB PO SCH (21:20)
[2023-12-07] MEDS: MORPHINE *EXTENDED RELEASE* 15 MG TAB PO SCH (21:20)
[2023-12-07] MEDS: METOPROLOL XL 50 MG TAB PO SCH (21:21)
[2023-12-08 06:59] LABS: Absolute Eosinophils 0.3 K/uL (0-0.5); Absolute Lymphocytes (CBC) 0.6 K/uL (0.7-4.9); Absolute Monocytes 0.6 K/uL (0.1-1.3); Absolute Neutrophil 8.1 K/uL (1.8-8.0); Basophils % 0.4 % (0-1.3); Eosinophils % 3.2 % (0-4.4); Hematocrit 26.2 % (39.6-49.0); Hemoglobin 8.2 g/dL (13.6-17.9); Lymphocytes % 6.3 % (15.3-44.8); MCH 24.7 pg (27.0-35.0); MCHC 31.2 g/dL (32.0-36.0); MCV 79.2 fL (80-100); MPV 7.1 fL (7.6-11.3); Monocytes % 5.9 % (3.3-12.3); Neutrophils % 84.2 % (41.7-73.7); Platelets 215 thou/uL (152-406); RBC Red Blood Cell Count 3.31 M/uL (4.33-5.43); Red Cell Distribution Width 20.3 % (12.1-15.2)
[2023-12-08 07:38] LABS: Anion Gap 6.8 mEq/L (5.0-15.0); Magnesium 1.9 mg/dL (1.6-2.4); Phosphorus 2.6 mg/dL (2.5-4.9); Potassium 3.8 mEq/L (3.5-5.1); Thyroid Stimulating Hormone 1.21 uIU/mL (0.358-3.740)
[2023-12-08] MEDS: POTASSIUM CL SA 10 MEQ TAB PO ONE (08:31)
[2023-12-08] MEDS: LEVOTHYROXINE SOD 0.088 MG TAB PO SCH (08:31)
[2023-12-08] MEDS: FUROSEMIDE 20 MG TABLET PO SCH (08:31)
[2023-12-08] MEDS: ASPIRIN 81 MG CHEWABLE TABLET PO SCH (08:32)
[2023-12-08] MEDS: glipiZIDE 5 MG TAB PO SCH (08:32)
[2023-12-08] MEDS: FORMOTEROL IH SCH (08:33)
[2023-12-08] MEDS: GLYCOPYRROLATE IH SCH (08:33)
[2023-12-08] MEDS: BUDESONIDE IH SCH (08:33)
[2023-12-08] MEDS: [UNRECOGNIZED DRUG - OTHER] IH SCH (08:33)
[2023-12-08 09:11] VITALS: O2SAT 94
[2023-12-08] MEDS: MORPHINE *EXTENDED RELEASE* 15 MG TAB PO SCH (10:49)
--- NOTE | 2023-12-08 11:44 | P.PN ---
Subjective Date of Service: 12/07/23 Patient's ankle has been immobilized. Very small medial malleolus are and lateral malleolus fracture. These are most likely not amenable to any surgery and immobilization will be the standard. They did discuss the case with orthopedic in the emergency room and no emergent surgery was necessary. Spoke with family and they do have a bed available at [facility]. Patient without a stroke. Patient will need to be nonweightbearing of the left ankle. Review of Systems 10-point ROS is otherwise unremarkable Physical Examination - Vital Signs Temperature: 98.1 F Blood Pressure: 138/64 Pulse: 85 Respirations: 18 Pulse Ox (%): 94 - Physical Exam General: Alert, In no apparent distress HEENT: Atraumatic, PERRLA, EOMI Neck: Supple, JVD not distended Respiratory: Clear to auscultation bilaterally, Normal air movement Cardiovascular: Regular rate/rhythm, Normal S1 S2 Gastrointestinal: Normal bowel sounds, No tenderness Musculoskeletal: No tenderness Integumentary: No rashes Neurological: Normal speech, Normal tone, Normal affect Lymphatics: No axilla or inguinal lymphadenopathy - Studies Medications List Reviewed: Yes Assessment & Plan - Problems (Diagnosis) (1) Trimalleolar fracture of left ankle Current Visit: Yes Status: Acute (2) History of lung cancer Current Visit: Yes Status: Acute (3) History of throat cancer Current Visit: Yes Status: Acute (4) History of rheumatoid arthritis Current Visit: Yes Status: Acute (5) History of coronary artery bypass graft Current Visit: Yes Status: Acute - Plan Plan: 1. Plan for transfer to inpatient rehab at [facility] 2. Outpatient follow-up with orthopedic 3. Immobilization of the left ankle 4. History of lung cancer with no evidence of metastasis; outpatient oncology follow-up 5. History rheumatoid arthritis; continue with treatment as an outpatient 6. History of CAD continue with cardiac meds 7. GI and DVT prophylaxis Discharge Plan: Other Plan to discharge in: 24 Hours - Advance Directives Does patient have a Living Will: No Does patient have a Durable POA for Healthcare: No - Code Status/Comfort Care Code Status: Full Code Critical Care: No Time Spent Managing PTS Care (In Minutes): 35
[2023-12-08 17:46] VITALS: BP 137/60; TEMP 97.5
== END 2023-12-08 17:55 | DRG 562 ==
LOC: ER 16:37 → ERHOLD 20:31 → 4TH 12-07 00:03
PROVIDERS: ADMIT Family Medicine; ATTEND Hospitalist
DX: S82.852A Displaced trimalleolar fracture of left lower leg, initial encounter for closed fracture (principal); G93.41 Metabolic encephalopathy; J96.11 Chronic respiratory failure with hypoxia; N17.9 Acute kidney failure, unspecified; D63.8 Anemia in other chronic diseases classified elsewhere; I10 Essential (primary) hypertension; I25.10 Atherosclerotic heart disease of native coronary artery without angina pectoris; R29.6 Repeated falls; Z88.5 Allergy status to narcotic agent; Z95.1 Presence of aortocoronary bypass graft; Z91.81 History of falling; Z79.890 Hormone replacement therapy; Z79.899 Other long term (current) drug therapy; Z85.118 Personal history of other malignant neoplasm of bronchus and lung
CPT/HCPCS: 36415; 51702; 70450; 70551; 71045; 72125; 80048; 80053; 81003; 82533; 82607; 83036; 83540; 83735; 84100; 84425; 84439; 84443; 85025; 94760; 97110; 97161; 97530; 99285; J1650; J2270; J7030